=== PATIENT | male | born 1960 | race Caucasian/White ===

== ENCOUNTER → 2021-04-16 08:44 | Outpatient (BNVA) | payer OTHER, SELFPAY | PROVIDERS: Family Provider Electrodiagnostic Medicine; PCP Electrodiagnostic Medicine; Visit Provider Nurse Practitioner Family | DX: Z20.822 Contact with and (suspected) exposure to COVID-19 (principal) | CPT/HCPCS: 87635 ==

== ENCOUNTER 2022-10-15 15:47 | Emergency (ER) | payer MEDICAID, SELFPAY ==
[2022-10-15 15:50] VITALS: BP 154/79; PULSE 84; RESP 18; TEMP 36.7; O2SAT 94
--- NOTE | 2022-10-15 16:16 | CTR_ITS ---
PROCEDURE INFORMATION: Exam: CT Orbits With Contrast Exam date and time: 10/15/2022 6:30 PM Age: 62 years old Clinical indication: Other: Redness, irritation of left eye; Additional info: Left eye redness and pain, periorbital swelling TECHNIQUE: Imaging protocol: Computed tomography of the orbits with contrast. Radiation optimization: All CT scans at this facility use at least one of these dose optimization techniques: automated exposure control; mA and/or kV adjustment per patient size (includes targeted exams where dose is matched to clinical indication); or iterative reconstruction. Contrast material: OMNIPAQUE 350; Contrast volume: 95 ml; Contrast route: INTRAVENOUS (IV); Other protocol: This patient has received 0 known CTs and 0 known cardiac nuclear medicine studies in the 12 months prior to the current study. COMPARISON: No relevant prior studies available. RADIATION DOSE METRICS: Total DLP (mGy-cm): 719.18 FINDINGS: Paranasal sinuses: Normal. No air-fluid levels. Orbital cavities: Orbits are normal. Globes are unremarkable. Bones/joints: No acute fracture. Soft tissues: No significant facial soft tissue swelling. CT/CT orbit w con [id number] IMPRESSION: Negative for orbital cellulitis.
--- NOTE | 2022-10-15 16:18 | W.ED.EYEPROB ---
Documented by User: JOSE ANTONIO Rene 10/16/22 07:16 HPI - Eye Problem General: Chief complaint: Eye Problems Stated complaint: eye pain Time Seen by Provider: 10/15/22 15:59 History of Present Illness: Patient is a 62-year-old male comes to the ED with left eye complaint. Approximately 2 weeks ago patient started developing some bilateral eye redness. He endorses having increased watering eyes as well. Approximately 4 days ago he started developing some pain in his left eye. Any ocular movement of left eye because of some pain as well. He also endorses having some left periorbital swelling over the past couple days. Endorses some blurry vision due to the excessive watering of eyes. Denies any eye injury or foreign body. Denies any other complaints. Denies any fevers, nausea/vomiting. Associated symptoms: Denies fever(s), headache(s), nausea, neck pain or vomiting Review of Systems Const: Denies: fever(s), chills or fatigue Eyes: Reports: eye discomfort (Left thigh), eye redness (Bilateral) and other (Pain with ocular movements of left eye); Denies: change in vision ENMT: Denies: throat pain, odynophagia, nasal discharge or nasal congestion Card: Denies: chest pain, palpitations, edema, swelling of feet/ankles, dyspnea on exertion or orthopnea Resp: Denies: dyspnea, productive cough or non-productive cough GI: Denies: abdominal pain, nausea, vomiting, diarrhea, constipation or hematochezia : Denies: flank pain, difficulty urinating, dysuria or hematuria Musc: Denies: neck pain, back pain or extremity swelling Skin/Breast: Denies: rash or new lesions Neuro: Denies: headache(s), numbness in extremities or weakness in extremities PFS ED PFSH: Medical History (Updated 10/15/22 @ 19:54 by JOSE ANTONIO Grimes) No pertinent family history No pertinent past medical history Social History (Updated 04/16/21 @ 08:13 by Steffanie Mustafa NP) Smoking and tobacco status: never smoked Alcohol intake: never Physical Exam Const: COMMON NORMALS: patient oriented x3 and alert GENERAL APPEARANCE: cooperative HENMT: COMMON NORMALS: normocephalic HEAD & SCALP: normocephalic MOUTH: Normal oral and palatal mucosa present THROAT: posterior oropharynx normal and uvula midline Eye: COMMON NORMALS: Equal, round and reactive pupils present and EOMs intact bilaterally PERIORBITAL: periorbital findings abnormal positive left periorbital swelling CONJUNCTIVA: Yes conjunctival abnormal positive bilateral conjunctival injection diffuse (Left eye is worse than right) PUPIL: Yes Equal, round and reactive pupils present OTHER: Patient endorses pain in the left eye with ocular movements. Neck/C-Spine: COMMON NORMALS: supple GENERAL: Yes normal visual inspection Resp: COMMON NORMALS: normal respiratory effort, No retractions, No use of accessory muscles and clear to auscultation bilaterally AUSCULTATION: clear to auscultation bilaterally Cardio: COMMON NORMALS: regular rate, regular rhythm, S1 normal heart sound present, S2 normal heart sound present, No gallops present (Cardio), No clicks present (Cardio), No murmurs present (Cardio) and Peripheral pulses 2+ throughout RATE: regular rate RHYTHM: regular rhythm HEART SOUNDS: S1 normal heart sound present and S2 normal heart sound present PERIPHERAL PULSES: Peripheral pulses 2+ throughout GI: COMMON NORMALS: Normal to inspection, nondistended, normoactive bowel sounds present, Soft to palpation, non-tender and no masses PALPATION: Yes Soft to palpation : COMMON NORMALS: Yes no CVA tenderness BLADDER/KIDNEY EXAM: Yes no CVA tenderness Back/Pelvis: COMMON NORMALS: no CVA tenderness Extremity: COMMON NORMALS: normal to inspection Neuro: COMMON NORMALS: patient oriented x3 SENSORIUM/ORIENTATION: Yes alert GAIT: Yes Normal gait present Skin: GENERAL SKIN EXAM: dry skin Course Vital Signs: Vital signs: Vital Signs Temperature 98.1 F 10/15/22 15:50 Pulse Rate 74 10/15/22 18:09 Respiratory Rate 18 10/15/22 18:09 Blood Pressure 157/95 10/15/22 18:09 Pulse Oximetry 96 10/15/22 18:09 Oxygen Delivery Me thod 10/15/22 18:09 MDM - Eye Problem Lab Data I reviewed the patient's lab results. 10/15/22 16:22 10/15/22 16:[address] 10/15/22 16:16 IMPRESSION: Negative for orbital cellulitis. Laboratory Results WBC 10.4 10^3/uL (4.0-10.0) H 10/15/22 16:22 RBC 5.19 10^6/uL (4.1-5.3) 10/15/22 16:22 Hgb 15.9 g/dL (11.7-16.6) 10/15/22 16:22 Hct 47.5 % (42.0-52.0) 10/15/22 16:22 MCV 91.5 fl (80-94) 10/15/22 16:22 MCH 30.6 pg (28.0-34.0) 10/15/22 16:22 MCHC 33.5 g/dL (30.0-36.0) 10/15/22 16:22 RDW 12.3 % (12.1-15.1) 10/15/22 16:22 Plt Count 251 10^3/cmm (130-400) 10/15/22 16:22 MPV 9.8 fL (7.4-10.4) 10/15/22 16:22 Neut % (Auto) 59.3 % 10/15/22 16:22 Lymph % (Auto) 33.5 % 10/15/22 16:22 [place] % (Auto) 6.4 % 10/15/22 16:22 Eos % (Auto) 0.1 % 10/15/22 16:22 Baso % (Auto) 0.3 % 10/15/22 16:22 Neut # (Auto) 6.15 10^3/uL (1.8-7.7) 10/15/22 16:22 Lymph # (Auto) 3.5 10^3/uL (0.8-4.8) 10/15/22 16:22 [place] # (Auto) 0.7 10^3/uL (0.2-0.9) 10/15/22 16:22 Eos # (Auto) 0.0 10^3/uL (0.0-0.8) 10/15/22 16:22 Baso # (Auto) 0.0 10^3/uL (0.0-0.1) 10/15/22 16:22 Nucleated RBC % (auto) 0 % 10/15/22 16:22 Nucleated RBCs # 0.0 /100WBC 10/15/22 16:22 Sodium 141 mmol/L (136-145) 10/15/22 16:22 Potassium 3.9 mmol/L (3.5-5.1) 10/15/22 16:22 Chloride 102 mmol/L (98-107) 10/15/22 16:22 Carbon Dioxide 24 mmol/L (22-29) 10/15/22 16:22 Anion Gap 18.9 (5-19) 10/15/22 16:22 BUN 21 mg/dL (8-23) 10/15/22 16:22 Creatinine 0.8 mg/dL (0.7-1.2) 10/15/22 16:22 GFR Calculation 97.6 mL/min (90-130) 10/15/22 16:22 Glucose 101 mg/dL (65-115) 10/15/22 16:22 Calculated Osmolality 295 mOsm/kg (285-295) 10/15/22 16:22 Calcium 9.6 mg/dL (8.5-10.5) 10/15/22 16:22 Total Bilirubin 0.4 mg/dL (0.15-1.2) 10/15/22 16:22 AST 29 U/L (0-40) 10/15/22 16:22 ALT 41 U/L (0-41) 10/15/22 16:22 Alkaline Phosphatase 53 U/L (40-130) 10/15/22 16:22 Total Protein 8.0 g/dL (6.6-8.7) 10/15/22 16:22 Albumin 4.6 g/dL (3.5-5.2) 10/15/22 16:22 Globulin 3.4 g/dL (1.3-4.6) 10/15/22 16:22 Discharge Plan Discharge Patient Disposition: Home Clinical Impression: Redness of both eyes Condition: Stable Prescriptions: No Action losartan-hydrochlorothiazide 50-12.5 mg tablet 1 tab PO DAILY eye drops as directed citalopram 20 mg tablet 20 mg PO DAILY Discharge Orders: Discharge ED (Routine); Ordered 10/15/22 Ordered By: Tejal Mercer Referrals: Skyler Mustafa MD [Physician] - Fredy Holt DO [Primary Care Provider] - Activity Restrictions/Additional Instructions: As we discussed case management should contact you tomorrow to help set you up with a follow-up appointment with Dr. Mustafa's office. You need to return to the emergency department for worsening eye pain, any type of visual change or visual loss, severe sensitivity to light, foreign body sensation, or any other concerns you may have. Continue your current eyedrops as directed. Sign Out Sign Out Data: Patient Sign Out occurred on 10/15/22 at 17:10. Patient's care was discussed, and care was transferred from to JOSE ANTONIO Grimes. Coding Level of Care Code ED [employer] Police Officer for Chg Fwd Exam Comprehensive Documented by User: JOSE ANTONIO Grimes 10/15/22 20:28 HPI - Eye Problem General: Chief complaint: Eye Problems Stated complaint: eye pain Time Seen by Provider: 10/15/22 15:59 PFSH ED PFSH: Medical History (Updated 10/15/22 @ 19:54 by JOSE ANTONIO Grimes) No pertinent family history No pertinent past medical history Social History (Updated 04/16/21 @ 08:13 by Steffanie Mustafa NP) Smoking and tobacco status: never smoked Alcohol intake: never Course Vital Signs: Vital signs: Vital Signs Temperature 98.1 F 10/15/22 15:50 Pulse Rate 74 10/15/22 18:09 Respiratory Rate 18 10/15/22 18:09 Blood Pressure 157/95 10/15/22 18:09 Pulse Oximetry 96 10/15/22 18:09 Oxygen Delivery Me thod 10/15/22 18:09 MDM - Eye Problem Medical Decision Making Assumed care from Max Palomo PA-C pending CT orbit. CT scan was normal. On examination of patient I do not appreciate any periorbital swelling. He does have diffuse bilateral eye redness. Patient is able to keep both eyes open and does not seem to be in any discomfort. He has very mild reported photophobia and pain with EOMs and complains of a frontal headache. No visual changes or visual loss. No foreign body sensation. On examination of his eyes I do not appreciate any corneal clouding, ciliary flush, or hypopyon. DDx includes conjunctivitis, anterior uveitis, episcleritis scleritis. Will have patient follow up with Dr. Mustafa' office emergently/this week for further evaluation. Return to ED precautions given. Lab Data 10/15/22 16:22 10/15/22 16:[address] 10/15/22 16:16 IMPRESSION: Negative for orbital cellulitis. Laboratory Results WBC 10.4 10^3/uL (4.0-10.0) H 10/15/22 16:22 RBC 5.19 10^6/uL (4.1-5.3) 10/15/22 16:22 Hgb 15.9 g/dL (11.7-16.6) 10/15/22 16:22 Hct 47.5 % (42.0-52.0) 10/15/22 16:22 MCV 91.5 fl (80-94) 10/15/22 16:22 MCH 30.6 pg (28.0-34.0) 10/15/22 16:22 MCHC 33.5 g/dL (30.0-36.0) 10/15/22 16:22 RDW 12.3 % (12.1-15.1) 10/15/22 16:22 Plt Count 251 10^3/cmm (130-400) 10/15/22 16:22 MPV 9.8 fL (7.4-10.4) 10/15/22 16:22 Neut % (Auto) 59.3 % 10/15/22 16:22 Lymph % (Auto) 33.5 % 10/15/22 16:22 [place] % (Auto) 6.4 % 10/15/22 16:22 Eos % (Auto) 0.1 % 10/15/22 16:22 Baso % (Auto) 0.3 % 10/15/22 16:22 Neut # (Auto) 6.15 10^3/uL (1.8-7.7) 10/15/22 16:22 Lymph # (Auto) 3.5 10^3/uL (0.8-4.8) 10/15/22 16:22 [place] # (Auto) 0.7 10^3/uL (0.2-0.9) 10/15/22 16:22 Eos # (Auto) 0.0 10^3/uL (0.0-0.8) 10/15/22 16:22 Baso # (Auto) 0.0 10^3/uL (0.0-0.1) 10/15/22 16:22 Nucleated RBC % (auto) 0 % 10/15/22 16:22 Nucleated RBCs # 0.0 /100WBC 10/15/22 16:22 Sodium 141 mmol/L (136-145) 10/15/22 16:22 Potassium 3.9 mmol/L (3.5-5.1) 10/15/22 16:22 Chloride 102 mmol/L (98-107) 10/15/22 16:22 Carbon Dioxide 24 mmol/L (22-29) 10/15/22 16:22 Anion Gap 18.9 (5-19) 10/15/22 16:22 BUN 21 mg/dL (8-23) 10/15/22 16:22 Creatinine 0.8 mg/dL (0.7-1.2) 10/15/22 16:22 GFR Calculation 97.6 mL/min (90-130) 10/15/22 16:22 Glucose 101 mg/dL (65-115) 10/15/22 16:22 Calculated Osmolality 295 mOsm/kg (285-295) 10/15/22 16:22 Calcium 9.6 mg/dL (8.5-10.5) 10/15/22 16:22 Total Bilirubin 0.4 mg/dL (0.15-1.2) 10/15/22 16:22 AST 29 U/L (0-40) 10/15/22 16:22 ALT 41 U/L (0-41) 10/15/22 16:22 Alkaline Phosphatase 53 U/L (40-130) 10/15/22 16:22 Total Protein 8.0 g/dL (6.6-8.7) 10/15/22 16:22 Albumin 4.6 g/dL (3.5-5.2) 10/15/22 16:22 Globulin 3.4 g/dL (1.3-4.6) 10/15/22 16:22 Discharge Plan Discharge Patient Disposition: Home Clinical Impression: Redness of both eyes Condition: Stable Prescriptions: No Action losartan-hydrochlorothiazide 50-12.5 mg tablet 1 tab PO DAILY eye drops as directed citalopram 20 mg tablet 20 mg PO DAILY Discharge Orders: Discharge ED (Routine); Ordered 10/15/22 Ordered By: Tejal Mercer Referrals: Skyler Mustafa MD [Physician] - Fredy Holt DO [Primary Care Provider] - Activity Restrictions/Additional Instructions: As we discussed case management should contact you tomorrow to help set you up with a follow-up appointment with Dr. Mustafa's office. You need to return to the emergency department for worsening eye pain, any type of visual change or visual loss, severe sensitivity to light, foreign body sensation, or any other concerns you may have. Continue your current eyedrops as directed. Sign Out Sign Out Data: Patient Sign Out occurred on 10/15/22 at 17:10. Patient's care was discussed, and care was transferred from to JOSE ANTONIO Grimes. Coding Level of Care Code ED [employer] Officer for [employer]ave[employer] Fwd Exam Comprehensive
[2022-10-15 16:39] LABS: Basophils % 0.3 %; Eosinophils % 0.1 %; Hematocrit 47.5 % (42.0-52.0); Hemoglobin 15.9 g/dL (11.7-16.6); Lymphocytes # 3.5 10^3/uL (0.8-4.8); Lymphocytes % 33.5 %; Mean Corpuscular HGB Conc 33.5 g/dL (30.0-36.0); Mean Corpuscular Hemoglobin 30.6 pg (28.0-34.0); Mean Corpuscular Volume 91.5 fl (80-94); Mean Platelet Volume 9.8 fL (7.4-10.4); Monocytes # 0.7 10^3/uL (0.2-0.9); Monocytes % 6.4 %; Neutrophils # 6.15 10^3/uL (1.8-7.7); Neutrophils % 59.3 %; Nucleated Red Blood Cells % 0 %; Platelet Count 251 10^3/cmm (130-400); Red Blood Count 5.19 10^6/uL (4.1-5.3); Red Cell Distribution Width 12.3 % (12.1-15.1); White Blood Count 10.4 10^3/uL (4.0-10.0)
[2022-10-15 16:56] LABS: Alanine Aminotransferase 41 U/L (0-41); Albumin Level 4.6 g/dL (3.5-5.2); Alkaline Phosphatase 53 U/L (40-130); Anion Gap 18.9 (5-19); Aspartate Amino Transferase 29 U/L (0-40); Blood Urea Nitrogen 21 mg/dL (8-23); Calcium 9.6 mg/dL (8.5-10.5); Carbon Dioxide 24 mmol/L (22-29); Chloride 102 mmol/L (98-107); Globulin 3.4 g/dL (1.3-4.6); Glomerular Filtration Rate 97.6 mL/min (90-130); Glucose 101 mg/dL (65-115); Osmolality Calculated 295 mOsm/kg (285-295); Potassium 3.9 mmol/L (3.5-5.1); Sodium 141 mmol/L (136-145); Total Bilirubin 0.4 mg/dL (0.15-1.2)
[2022-10-15 18:09] VITALS: BP 157/95; PULSE 74; RESP 18; O2SAT 96
[2022-10-15] MEDS: iohexol 350 mg/mL 500 mL Btl (per mL) 95 ML IV (18:27)
--- NOTE | 2022-10-16 09:03 | DCPLANNER ---
Addendum entered by Valentina Will 10/16/22 13:27: manager orange called the office of Dr. Mustafa to confirm that patients information had been received. manager orange was told that clinic received patients information. Original Note: manager orange had message to schedule a follow up appointment for patient with ophthalmology. manager orange faxed patients information to the front office of Dr. Mustafa. Clinic will review patients paperwork and will call patient with appointment information.
== END 2022-10-15 20:01 | disposition home or self-care (01) ==
PROVIDERS: Physician Assistant; Emergency Provider Physician Assistant; PCP Electrodiagnostic Medicine
DX: H10.9 Unspecified conjunctivitis (principal)
CPT/HCPCS: 70481; 80053; 85025; 99285; Q9967

== ENCOUNTER 2023-04-22 13:59 | Outpatient (CLI) | payer MEDICAID, SELFPAY ==
--- NOTE | 2023-04-22 14:09 | CT_ITS ---
WS: [id number] CT chest wo con [id number] HISTORY: CHRONIC COUGH TECHNIQUE: Axial imaging performed through the thorax. Coronal and sagittal reformats are submitted. All CT scans at [facility] use at least one of these dose optimization techniques: automated exposure control; mA and/or kV adjustment per patient size (includes targeted exams where dose is mat ched to clinical indication); or iterative reconstruction. CONTRAST: None DLP: 439.98 mGy.cm COMPARISON: None available. Lungs and central airway: Irregular nodule right upper lobe measures 12 x 13 mm. There are adjacent s mall satellite nodules in the right upper lobe. There is an additional nodule slightly superior to th e larger nodule measuring 4 mm. Mild hazy attenuation groundglass attenuation left lung base with adj acent nodules. Largest nodule at the left lung base is 4 mm. Pleura: Normal. No pleural effusion. Heart and pericardium: Normal size heart with no pericardial effusion. Mediastinum and isabelle: No mediastinum or hilar adenopathy. Vessels: Normal size aorta. Mild coronary artery calcifications. Normal sized pulmonary artery. Chest wall and lower neck: No soft tissue masses. Upper abdomen: Normal. Osseous structures: No destructive process. IMPRESSION: 1. Right upper lobe irregular nodule measuring 12 x 13 mm with adjacent satellite nodules. Additional 4 mm nodule right upper lobe. Indeterminate but suspicious for neoplasm. 2. Additional small, subcentimeter nodules at the left lung base with groundglass attenuation. 3. Recommendation: Follow-up chest CT in 3 months versus PET/CT imaging at this time. 4. No mediastinal or hilar adenopathy.
[2023-04-22 14:14] VITALS: PULSE 71; RESP 18; O2SAT 98
[2023-04-22] MEDS: albuterol 2.5 mg/3 mL Neb INHALATION (14:14)
[2023-04-22 14:19] VITALS: PULSE 72
== END 2023-04-22 14:00 | disposition home or self-care (01) ==
PROVIDERS: PCP Electrodiagnostic Medicine; Visit Provider Electrodiagnostic Medicine
DX: R05.3 Chronic cough (principal); R91.8 Other nonspecific abnormal finding of lung field; R94.2 Abnormal results of pulmonary function studies
CPT/HCPCS: 71250; 94060; 94729; J7613

== ENCOUNTER → 2023-05-19 14:41 | Outpatient (BNVA) | payer MEDICAID, SELFPAY | PROVIDERS: PCP Electrodiagnostic Medicine; Visit Provider Internal Medicine Pulmonary Disease | DX: R91.8 Other nonspecific abnormal finding of lung field (principal); J30.2 Other seasonal allergic rhinitis; R06.02 Shortness of breath | CPT/HCPCS: 82785; 86003 ==

== ENCOUNTER 2023-05-25 10:41 | Outpatient (CLI) | payer MEDICAID, SELFPAY ==
--- NOTE | 2023-05-25 11:00 | FL_ITS ---
WS: [id number] Exam: FL sniff test [id number] Date/Time of Exam: 05/25/2023 11:00 AM Reason For Exam: SHORTNESS OF BREATH Sniff test performed under fluoroscopic visualization. The diaphragms move in a normal fashion during inspiration and expiration and also during sniff test. There were no findings that would suggest diaphragmatic paralysis. It is noted on numerous prior efren ging exams that the RIGHT diaphragm is somewhat elevated as compared to the LEFT secondary to interpo sition of the liver. This can be seen on the CT scan of the abdomen as far back as 07/27/2013. IMPRESSION: 1. Unremarkable sniff test. There appears to be physiologic motion of both diaphragms identified duri ng fluoroscopy.
== END 2023-05-25 10:42 | disposition home or self-care (01) ==
PROVIDERS: PCP Electrodiagnostic Medicine; Visit Provider Internal Medicine Pulmonary Disease
DX: R06.02 Shortness of breath (principal)
CPT/HCPCS: 76000

== ENCOUNTER 2023-08-25 14:13 | Outpatient (CLI) | payer MEDICAID, SELFPAY ==
--- NOTE | 2023-08-25 09:00 | PETR_ITS ---
PROCEDURE INFORMATION: Exam: PET/CT Skull Base to Mid-thigh Exam date and time: 08/25/2023 9:26 AM Age: 63 years old Clinical indication: Abnormal findings; Lung nodules LABS AND CLINICAL REPORTS: Glucose: 95 mg/dl Treatment strategy for malignancy (PET staging): Initial Staging (PI) TECHNIQUE: Imaging protocol: Following at least four-hour fasting and following the injection of radiopharmaceutical, low dose CT images were obtained. Then, PET images were obtained. Attenuation corrected images were constructed using the CT scan. Fused images of PET and CT were reviewed. The standardized uptake values (SUV) reported below are maximum values within a region of interest, expressed in gm/ml. Exam includes orbital meatal line to mid-thigh. Radiopharmaceutical: 11.44 mCi F-18 FDG (Fluorodeoxyglucose), IV. Time of imaging post radiopharmaceutical administration: 1 hour Injection site: Left antecubital COMPARISON: CT chest con [id number] 04/22/2023 2:53 PM, CT abdomen and pelvis 10/16/2016 FINDINGS: Limitations: The examination is slightly technically suboptimal secondary to the scan to injection time outside of recommended parameters (45-75 minutes). Reported scan to injection time of 42 minutes. Injection to scan times outside of recommended parameters can result in decreased PET sensitivity and limit the utility of comparison of SUV values to prior or subsequent exams. Brain: Visualized brain has normal physiologic uptake. Pharynx: There is mild, likely physiologic or inflammatory uptake in the bilateral palatine tonsils, SUV max 3.7 on the right and 4.2 on the left without evidence of discrete lesions in these locations on the CT images. Larynx: No abnormal uptake. Lungs, pleura and trachea: A solid spiculated nodule in the anterior inferior aspect of the right upper lobe measures 1.6 x 1.0 cm on series 3, image 72, SUV max 1.0 and appears similar to possibly slightly increased in size since the prior exam allowing for differences in slice thickness. Additional smaller solid-appearing nodules in the anterior right upper lobe measuring 2-3 mm on series 3, image 66 and series 3, image 70 are similar. A 3-4 mm solid posterior left lower lobe nodule on series 3, image 95 is been stable since at least 10/16/2016 without elevated uptake. No definite additional pulmonary nodules with limitations of mild respiratory motion artifact. Heart: Normal physiologic uptake. Mediastinal space: No abnormal uptake. Liver: No abnormal uptake. Gallbladder and bile ducts: No abnormal uptake. Pancreas: No abnormal uptake. Spleen: No abnormal uptake. Adrenal glands: No abnormal uptake. Kidneys and ureters: Rounded non radiotracer avid lesions in the bilateral kidneys are noted, some which are hypodense to renal parenchyma while others are slightly hyperdense for example arising exophytically from the inferior pole of the left kidney measuring 1.4 cm in diameter. Stomach and bowel: No abnormal uptake. Vasculature: No abnormal uptake. There are diffuse atherosclerotic changes. Lymph nodes: No abnormal uptake. No lymphadenopathy in the head, neck, chest, abdomen, pelvis, and extremities. Bones/joints: No abnormal uptake in the visualized axial and appendicular skeleton. There is mild diffuse vertebral body spondylosis. Soft tissues: Physiologic appearing uptake within the lower lip is present. METRICS: Mediastinal blood pool: SUV max 2.2 [facility] [id number] IMPRESSION: 1. No evidence of radiotracer avid malignancy. 2. A dominant solid spiculated right upper lobe nodule is similar to slightly increased in size with a similar appearance of two adjacent smaller 2-3 mm solid nodules. All these nodules are non radiotracer avid which favors a benign etiology. The left lower lobe nodule has been present since 04/22/2023 which also favors a benign etiology. The morphology of the dominant right upper lobe nodule remains suspicious and the possibility of non hypermetabolic malignancy cannot be entirely excluded from this exam. Consider percutaneous biopsy or 3 month follow-up CT for further surveillance. 3. Non radiotracer avid rounded lesions in both kidneys are present. Assessment of renal lesions can be limited by PET-CT. These structures were compatible with benign cysts, some of which are likely hemorrhagic on the comparison CT of 10/16/2016. No follow-up is necessary. 4. Additional nonurgent findings as detailed above.
== END 2023-08-25 14:14 | disposition home or self-care (01) ==
LOC: RAD 14:13
PROVIDERS: PCP Electrodiagnostic Medicine; Visit Provider Internal Medicine Pulmonary Disease
DX: R91.8 Other nonspecific abnormal finding of lung field (principal)
CPT/HCPCS: 78815; A9552

== ENCOUNTER 2023-12-08 08:28 | Outpatient (CLI) | payer MEDICAID, SELFPAY ==
--- NOTE | 2023-12-08 09:00 | CTR_ITS ---
PROCEDURE INFORMATION: Exam: CT Chest Without Contrast; Diagnostic Exam date and time: 12/08/2023 8:42 AM Age: 63 years old Clinical indication: Condition or disease; Lung condition and disease; Pulmonary nodule, solitary; Additional info: Follow up TECHNIQUE: Imaging protocol: Diagnostic computed tomography of the chest without contrast. Radiation optimization: All CT scans at this facility use at least one of these dose optimization techniques: automated exposure control; mA and/or kV adjustment per patient size (includes targeted exams where dose is matched to clinical indication); or iterative reconstruction. COMPARISON: 1. PT PET [facility] INITIAL [id number] 08/25/2023 9:[address] chest wo con [id number] 04/22/2023 2:53 PM RADIATION DOSE METRICS: Total DLP (mGy-cm): 512.24 FINDINGS: Limitations: Images degraded by artifact, motion, breathing. Lungs: Stable small nodules left lung base, left lower lobe. 1-1.5 cm irregular nodule right upper lobe, series 5, image 22, appears stable compared to 08/17/2023, 04/22/2023. Small adjacent nodules, satellite nodules also appear stable. No new focal infiltrate seen of the lungs. Pleural spaces: No pneumothorax and no pleural effusion seen. Heart: No pericardial effusion seen. Coronary arteries: Coronary artery calcifications. Esophagus: Suggestion of mild wall thickening esophagus. Lymph nodes: No new suspicious lymphadenopathy seen. Vasculature: Atherosclerotic disease. No aneurysm seen of thoracic aorta. Adrenal glands: Noncontrasted adrenals unremarkable. Bones/joints: Degenerative changes spine. Prior rib fractures. Soft tissues: Unremarkable. CT/CT chest wo con [id number] IMPRESSION: 1-1.5 cm irregular nodule right upper lobe, series 5, image 22, appears stable compared to 08/17/2023, 04/22/2023. Follow-up CT scan chest recommended in 3-6 months, or sooner if indicated.
== END 2023-12-08 08:29 | disposition home or self-care (01) ==
LOC: RAD 08:30
PROVIDERS: PCP Electrodiagnostic Medicine; Visit Provider Internal Medicine Pulmonary Disease
DX: R91.1 Solitary pulmonary nodule (principal); J98.6 Disorders of diaphragm
CPT/HCPCS: 71250

== ENCOUNTER 2024-06-11 08:32 | Emergency (ER) | payer MEDICARE, MEDICAID, SELFPAY ==
[2024-06-11 08:40] VITALS: BP 183/104; PULSE 60; RESP 20; TEMP 36.6; O2SAT 95; BMI 33.7
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
[2024-06-11] MEDS: tetanus-dipt-pertussis 0.5 mL SDV IM (08:49)
[2024-06-11 09:50] VITALS: BP 173/87; PULSE 68; O2SAT 95
== END 2024-06-11 09:51 | disposition home or self-care (01) ==
PROVIDERS: Emergency Provider Family Medicine; PCP Electrodiagnostic Medicine
DX: S09.90XA Unspecified injury of head, initial encounter (principal); S00.81XA Abrasion of other part of head, initial encounter; V29.99XA Rider (driver) (passenger) of other motorcycle injured in unspecified traffic accident, initial encounter
CPT/HCPCS: 70450; 72125; 90471; 90715; 99284

== ENCOUNTER 2024-06-29 08:17 | Outpatient (CLI) | payer MEDICARE, MEDICAID, SELFPAY ==
--- NOTE | 2024-06-29 08:33 | CT_ITS ---
WS: [id number] CT chest w con* [id number] HISTORY: MUTLIPLE LUNG NODULES F/U TECHNIQUE: Axial imaging performed through the thorax. Coronal and sagittal reformats are submitted. All CT scans at [facility] use at least one of these dose optimization techniques: automated exposure control; mA and/or kV adjustment per patient size (includes targeted exams where dose is mat ched to clinical indication); or iterative reconstruction. CONTRAST: Omnipaque 350; 100 mL IV. DLP: 449.12 mGy.cm COMPARISON: 12/08/2023, 04/22/2023, PET/CT 08/25/2023 Lungs and central airway: Poor inspiratory effort. Motion artifact during the examination. Reidentifi ed is a 10 x 7 mm nodule RIGHT upper lobe with small adjacent satellite lesions. This mass was negati ve on the recent PET/CT and has not increased in size since 04/22/2023. No change in the LEFT lower lob e very small pulmonary nodules. No new mass or nodule. Pleura: Normal. No pleural effusion. Heart and pericardium: Normal size heart with no pericardial effusion. Mediastinum and isabelle: Small RIGHT suprahilar lymph node. No adenopathy. Vessels: Normal size aortic and pulmonary artery. No coronary artery calcifications. Chest wall and lower neck: No soft tissue masses. Upper abdomen: Hepatic steatosis within the visualized liver. No adrenal mass. Well-circumscribed sta ble cyst upper pole LEFT kidney measures 10 mm. Osseous structures: No destructive process. CT/CT chest w con* [id number] IMPRESSION: 1. No increase in size RIGHT upper lobe 10 x 7 mm pulmonary nodule since 023. This nodule was also negative on a prior PET/CT. 2. Subcentimeter nodules LEFT lower lobe are stable.
[2024-06-29 08:59] LABS: Blood Urea Nitrogen 16 mg/dL (8-23); Glomerular Filtration Rate 84.7 mL/min (90-130)
[2024-06-29] MEDS: iohexol 350 mg/mL 500 mL Btl (per mL) IV (09:34)
== END 2024-06-29 08:18 | disposition home or self-care (01) ==
LOC: RAD 08:17
PROVIDERS: Radiology Neuroradiology; PCP Electrodiagnostic Medicine; Visit Provider Electrodiagnostic Medicine
DX: R91.8 Other nonspecific abnormal finding of lung field (principal); K76.0 Fatty (change of) liver, not elsewhere classified; N28.1 Cyst of kidney, acquired
CPT/HCPCS: 71260; 82565; 84520

== ENCOUNTER 2024-08-09 08:24 | Outpatient (CLI) | payer MEDICARE, MEDICAID, SELFPAY | END 2024-08-09 08:25 | disposition home or self-care (01) | LOC: RT 08:25 | PROVIDERS: PCP Electrodiagnostic Medicine; Visit Provider Electrodiagnostic Medicine | DX: J44.89 Other specified chronic obstructive pulmonary disease (principal); R94.2 Abnormal results of pulmonary function studies | CPT/HCPCS: 94010; 94729 ==

== ENCOUNTER → 2024-09-27 08:37 | Outpatient (BNVA) | payer MEDICARE, MEDICAID, SELFPAY | PROVIDERS: PCP Electrodiagnostic Medicine; Visit Provider Student in an Organized Health Care Education/Training Program | DX: M25.561 Pain in right knee (principal); M25.562 Pain in left knee; Z01.818 Encounter for other preprocedural examination; M17.12 Unilateral primary osteoarthritis, left knee; R03.0 Elevated blood-pressure reading, without diagnosis of hypertension | CPT/HCPCS: 73560; 73565; 99204 ==

== ENCOUNTER 2024-10-10 07:19 | Outpatient (CLI) | payer MEDICARE, MEDICAID, SELFPAY ==
[2024-10-10 07:58] LABS: Basophils # 0.1 10^3/uL (0.0-0.1); Basophils % 0.6 %; Eosinophils % 0.1 %; Hematocrit 43.4 % (37-53); Lymphocytes # 3.2 10^3/uL (0.8-4.8); Lymphocytes % 40.5 %; Mean Corpuscular HGB Conc 33.9 g/dL (30-55); Mean Corpuscular Hemoglobin 30.4 pg (27-33); Mean Corpuscular Volume 89.7 fl (82-101); Monocytes # 0.5 10^3/uL (0.2-0.9); Monocytes % 6.5 %; Neutrophils # 4.06 10^3/uL (1.8-7.7); Nucleated Red Blood Cells % 0 %; Platelet Count 218 10^3/cmm (157-399); Red Blood Count 4.84 10^6/uL (3.85-5.65); Red Cell Distribution Width 11.6 % (12.1-15.1); White Blood Count 7.82 10^3/uL (3.29-11.43)
[2024-10-10 08:17] LABS: Bilirubin Urine Negative (Negative); Blood Urine Negative (Negative); Glucose Urine UA Negative (Normal); Ketones Urine Negative (Negative); Leukocyte Esterase Urine 1+ (Negative); Nitrate Urine Negative (Negative); Protein Urine 1+ (Negative); Specific Gravity, Urine 1.023 (1.005-1.030); Urine Appearance Clear (CLEAR); Urine Color Yellow (Yellow)
[2024-10-10 08:19] LABS: Alanine Aminotransferase 26 U/L (0-41); Albumin Level 4.1 g/dL (3.5-5.2); Alkaline Phosphatase 70 U/L (40-130); Anion Gap 15.9 (5-19); Aspartate Amino Transferase 20 U/L (0-40); Blood Urea Nitrogen 18 mg/dL (8-23); Calcium 9.3 mg/dL (8.5-10.5); Carbon Dioxide 26 mmol/L (22-29); Chloride 104 mmol/L (98-107); Globulin 3.1 g/dL (1.3-4.6); Glomerular Filtration Rate 113.2 mL/min (90-130); Glucose 106 mg/dL (65-115); Osmolality Calculated 296 mOsm/kg (285-295); Potassium 3.9 mmol/L (3.5-5.1); Sodium 142 mmol/L (136-145); Total Bilirubin 0.2 mg/dL (0.15-1.2); Total Protein 7.2 g/dL (6.6-8.7)
[2024-10-10 08:19] LABS: Add Urine Microscopic? YES; Bacteria Urine 1+ /hpf; Hyaline Casts Urine 1.65 /lpf; RBC Urine 0-2 /hpf (0-2); Squamous Epithelial Cell Urine 0-5 /hpf (0-5); WBC Urine 51-100 /hpf (0-5)
[2024-10-10 08:50] LABS: Add Urine Culture? Yes
== END 2024-10-10 07:20 | disposition home or self-care (01) ==
LOC: LAB 07:24
PROVIDERS: PCP Electrodiagnostic Medicine; Visit Provider Student in an Organized Health Care Education/Training Program
DX: Z01.818 Encounter for other preprocedural examination (principal)
CPT/HCPCS: 36415; 80053; 81001; 85025; 87086

== ENCOUNTER 2024-10-10 16:02 | Outpatient (CLI) | payer MEDICARE, MEDICAID, SELFPAY ==
--- NOTE | 2024-10-10 16:15 | CT_ITS ---
WS: [id number] CT LEFT KNEE, NONCONTRAST TECHNIQUE: Noncontrast CT of the LEFT knee to include the LEFT hip and ankle. CLINICAL INFORMATION: LEFT KNEE DJD DLP: 957.[address] scans at [facility] use at least one of these dose optimization techniques: automated e xposure control; mA and/or kV adjustment per patient size (includes targeted exams where dose is matc hed to clinical indication); or iterative reconstruction. FINDINGS: Moderate to advanced tricompartment arthritis LEFT knee. Hypertrophic patella. Small suprapatellar ef fusion. Lobulated popliteal cyst. Soft tissue edema about the knee. Sigmoid diverticulosis. Tiny fat-containing LEFT inguinal hernia. Mild prostate enlargement. Prostate measures 3.[address]/CT knee [facility] [id number] IMPRESSION: Images obtained for preoperative purposes.
== END 2024-10-10 16:03 | disposition home or self-care (01) ==
LOC: RAD 16:03
PROVIDERS: PCP Electrodiagnostic Medicine; Visit Provider Student in an Organized Health Care Education/Training Program
DX: M17.12 Unilateral primary osteoarthritis, left knee (principal); R93.6 Abnormal findings on diagnostic imaging of limbs; M71.22 Synovial cyst of popliteal space [Baker], left knee; K57.30 Diverticulosis of large intestine without perforation or abscess without bleeding; N40.0 Benign prostatic hyperplasia without lower urinary tract symptoms; R93.89 Abnormal findings on diagnostic imaging of other specified body structures
CPT/HCPCS: 73700

== ENCOUNTER → 2024-10-18 08:32 | Outpatient (BNVA) | payer MEDICARE, MEDICAID, SELFPAY | PROVIDERS: PCP Electrodiagnostic Medicine; Visit Provider Family Medicine | DX: Z01.818 Encounter for other preprocedural examination (principal) | CPT/HCPCS: 81003; 93005 ==

== ENCOUNTER 2024-10-24 10:02 | Observation (INO) | payer MEDICARE, MEDICAID, SELFPAY ==
[2024-10-24] VITALS (17 sets, daily range): BP systolic 112–150; BP diastolic 61–90; PULSE 72–97; RESP 16–20; TEMP 36.2–36.8; O2SAT 92–98; BMI 32.9
[2024-10-24] MEDS: acetaminophen 1,000 MG/100 ML PIGGYBACK 400 MG IV ×3 (06:27→17:42)
[2024-10-24] MEDS: lactated ringers 500 ML IV (06:30)
[2024-10-24] MEDS: ketorolac 30 mg/mL INJ IVP (06:31)
--- NOTE | 2024-10-24 06:34 | ANES.PREANE2 ---
Pre-Anesthetic Assessment Height/Weight: Height 5 ft 4 in Weight 192 lb Temp Pulse Resp BP Pulse Ox O2 Del Method 97.6 F 86 18 150/90 97 Room Air 10/24/24 06:08 10/24/24 06:08 10/24/24 06:08 10/24/24 06:08 10/24/24 06:08 10/24/24 06:18 Preop Diagnosis: Knee arthritis Operation Date: 10/24/24 07:00 Proposed Procedures p Roberto Robot Total Knee Arthroplasty(Left) - Efraín Palomo, DO Was Beta Colette taken within 24 hours: N/A Was Clonidine taken within 24 hours: N/A Last intake: Intake Last Liquid Date 10/23/24 Last Liquid Time 22:00 Last Solid Date 10/23/24 Last Solid Time 22:00 Social No alcohol and No tobacco Exam alert, oriented x 3, clear to auscultation bilaterally and regular rate & rhythm Airway Submandibular: within normal limits Cervical ROM: within normal limits Mallampati: Class II Comments: Comments: Edentulous Anesthetic Plan ASA status: 2 Anesthesia: MAC and Regional (specify below) Other: No prior issues with anesthesia NPO since yesterday History of hypertension on amlodipine Patient has a right upper lobe pulmonary nodule that has been followed for quite some time Positive UA in September, repeat UA negative Other labs reviewed and unremarkable EKG showing sinus rhythm METs greater than 4 Plan for spinal anesthetic with post induction nerve block Medications/Allergies Home Medications ?Medication ?Instructions ?Recorded ?Confirmed ?Last Taken ?Type amlodipine 10 mg tablet 10 mg PO DAILY 10/18/24 10/20/24 10/23/24 History ciprofloxacin HCl 500 mg tablet 500 mg PO Q12H #10 tabs 10/18/24 10/20/24 10/22/24 Rx finasteride 5 mg tablet 5 mg PO DAILY 10/18/24 10/20/24 10/23/24 History tamsulosin 0.4 mg capsule 0.4 mg PO DAILY 10/18/24 10/20/24 10/23/24 History Allergies Allergy/AdvReac Type Severity Reaction Status Date / Time morphine Allergy Intermediate vomit Verified 10/20/24 11:18 Current Medications Generic Name Dose Route Start Last Admin Trade Name Freq PRN Reason Stop Dose Admin Lactated Ringer's 500 mls @ 500 mls/hr 10/24/24 05:56 10/24/24 06:30 Lactated Ringers IV 10/24/24 06:55 500 mls/hr .Q1H ONE Administration PFSH Anesthesia Medical History No pertinent past medical history No pertinent family history Social History Smoking and tobacco/nicotine status: never used tobacco/nicotine Alcohol intake: never Substance/Drug Use: never Marital status: Data Anesthesia 10/24/24 06:25 10/24/24 06:25 Cardiac Studies: No Data to Display
[2024-10-24] MEDS: sodium chloride 0.9% 1,000 ML 30 ML IV (06:55)
[2024-10-24 06:57] LABS: Basophils % 0.5 %; Eosinophils # 0.2 10^3/uL (0.0-0.8); Eosinophils % 2.7 %; Hematocrit 44.1 % (37-53); Lymphocytes # 3.2 10^3/uL (0.8-4.8); Lymphocytes % 38.2 %; Mean Corpuscular HGB Conc 34.2 g/dL (30-55); Mean Corpuscular Hemoglobin 30.1 pg (27-33); Mean Corpuscular Volume 87.8 fl (82-101); Mean Platelet Volume 9.9 fL (7.4-10.4); Monocytes # 0.6 10^3/uL (0.2-0.9); Monocytes % 7.4 %; Nucleated Red Blood Cells % 0 %; Platelet Count 202 10^3/cmm (157-399); Red Blood Count 5.02 10^6/uL (3.85-5.65); Red Cell Distribution Width 11.7 % (12.1-15.1); White Blood Count 8.24 10^3/uL (3.29-11.43)
[2024-10-24 06:59] LABS: Blood Urea Nitrogen 16 mg/dL (8-23); Calcium 9.5 mg/dL (8.5-10.5); Carbon Dioxide 22 mmol/L (22-29); Chloride 102 mmol/L (98-107); Creatinine Clr Calc Pharmacy 91.6094; Glomerular Filtration Rate 113.2 mL/min (90-130); Glucose 105 mg/dL (65-115); Osmolality Calculated 292 mOsm/kg (285-295); Sodium 140 mmol/L (136-145)
--- NOTE | 2024-10-24 07:01 | W.PM.OPSUD ---
Surgery/Procedure H&P Update DATE OF PROCEDURE: October 24, 2024 DATE H&P PERFORMED: 09/27/24 H&P UPDATE INFORMATION: I have reviewed H&P completed within last 30 days, I have examined patient prior to procedure and No changes to prior documentation PREOP DIAGNOSIS: Left Knee DJD PRIMARY INDICATION FOR PROCEDURE: Left knee DJD PLANNED PROCEDURE: Operation Date: 10/24/24 07:00 Proposed Procedures p Roberto Robot Total Knee Arthroplasty(Left) - Efraín Palomo DO
[2024-10-24] MEDS: ceFAZolin 2,000 MG in sodium chloride 0.9% (plus) 50 ML 100 MG IV ×3 (07:04→23:57)
--- NOTE | 2024-10-24 07:37 | ANES.PROC ---
Anesthesia Procedures Procedure/Date: 10/24/24 Nerve Block ^: Nerve Block 1: Main Anesthesia: spinal anesthesia block Time Out Performed: Yes Consent: requested by attending/covering physician and from patient Nerve block location: adductor canal Anesthesia monitors applied: pulse oximetry, EKG, BP cuff and oxygen Nerve block position: supine Anesthetic Used: ropivicaine 0.5% Amount of anesthesia used (mL): 15 Ultrasound used to: recognize landmarks Nerve Stimulator Used?: No Interscalene/Femoral BLK: other needle (pjunk 4inch) Injection: neg aspiration of heme Patient Tolerated Procedure: well Complications: none
[2024-10-24] MEDS: tranexamic acid 1,000 mg/10mL SDV 1000 MG IV (07:50)
[2024-10-24 08:07] LABS: Anion Gap 19.8 (5-19); Potassium 3.8 mmol/L (3.5-5.1)
[2024-10-24] MEDS: ROPivacaine 0.2% Premix 100 mL 200 MG INTRA-ARTI (08:09)
[2024-10-24] MEDS: ketorolac 30 mg/mL INJ XX (08:09)
[2024-10-24] MEDS: EPINEPHrine 1 mg/mL INJ XX (08:09)
[2024-10-24] MEDS: tranexamic acid 1,000 mg/10mL SDV 1000 MG XX (08:09)
--- NOTE | 2024-10-24 09:08 | P.BOP_ITS ---
Date of Procedure: 10/24/2024 Surgeon: Efraín Palomo DO [employer] Agent(s): Max Palomo PA-C Procedure(s) performed: Left total knee arthroplasty?Roberto robotic assisted Findings of the procedure(s): Patient found to have left knee severe degenerative joint disease underwent procedure as planned without issues or complications. Taken back to PACU stable condition Estimated blood loss: 25 mL Specimen(s) removed: Tibia femur patellar bone cuts Post-operative diagnosis: Left knee degenerative joint disease
--- NOTE | 2024-10-24 09:11 | P.OP_ITS ---
Operative Report Date of procedure: October 24, 2024 Surgeon: Efraín Palomo DO Senior Director Creative Services: Max Palomo PA-C: PA was necessary for assistance in this case with leg positioning retraction and protection of neurovascular structures as well as assistance in implantation wound closure and dressing application. Procedure: Preoperative diagnosis: Left knee degenerative joint disease Post-op diagnosis: Same Procedure done: Left total knee arthroplasty, cemented?robotic assisted Roberto Implants: [place] triathlon size 3 femur CR cemented?left [place] triathlon size? 4 tibia universal baseplate cemented [place] triathlon symmetric patella size 29 mm Shayne triathlon polyethylene 10mm Surgeon: Efraín Palomo DO Estimated blood?loss: 25 mL Tourniquet 63minutes IV fluids: 1200 mL Urine output: 800 mL Complications: None Condition: stable Disposition: floor Brief History: Patient is a 64-year-old male with with chronic?left knee degenerative joint d isease.? Patient has been worked up in the outpatient setting in the orthopedic office at this point time through shared decision making given? [id number] arthritis as well as failed conservative treatment, and pt would?like to proceed with a?left total knee arthroplasty.? Through shared decision making elected to proceed with surgical intervention for?left total knee arthroplasty ROBERTO robotic assisted.? We talked about continued conservative treatment and surgical intervention as far as the risk benefits complications alternatives surgical and nonsurgical treatment options.? At this point time understanding patient risks with surgery he agrees to proceed with surgical intervention.? Once again? risk with surgery include but are not?limited to make it better make it worse blood clot, heart attack, stroke, on the table, infection, injury to nerves or vessels, persistent pain, arthrofibrosis, implant failure.? Understanding these risks patient agrees to proceed with surgical intervention consent was obtained.? All questions answered. Procedure: Patient was seen and evaluated in the preoperative holding area.? Consent was reviewed and signed with patient with plan for?left total knee arthroplasty.? All questions answered.? Correct extremity marked.? Patient seen and evaluated by the anesthesia department and once cleared for surgery was taken back to the operative suite.? Patient was placed into a supine position on the OR table.? All bony prominences were well-padded.? Patient was appropriately secured to the bed.? Patient underwent anesthesia per the anesthesia department.? Patient received spinal anesthesia and? Dangelo catheter was placed.? A nonsterile tourniquet was applied to the?left thigh.? At this point in time a final timeout performed.? Patient received appropriate preoperative antibiotics and TXA. Next the?left?lower extremity was then prepped and draped in standard orthopedic fashion. Esmarch tourniquet was used exsanguinate the?left?lower extremity.? Tourniquet was insufflated to 250 mmHg. A standard anterior incision was made over midline of the knee.? Sharp scalpel excision through skin and subcutaneous tissue full-thickness skin flaps were made.? Fascia was elevated off of the extensor retinaculum was stable with medial parapatellar arthrotomy was then made.? The performed standard sequential releases..? Immediately on entry into the joint patient was found to have severe eburnated bone and tricompartmental arthritic changes noted.? With significant osteophyte formation.? Next the the patella was then stuffed and the knee was then flexed.?? Rubia was placed superiorly around the anterior aspect of the femur this was freed of synovium and I subsequently then placed by 2 femur pins to establish my femur arrays for the Roberto robot.? These were then placed bicortically and? femur array was then appropriately secured with appropriate visualization.? Next attention was turned towards the tibial rays.? These were then drilled sequentially bicortically in parallel fashion and intraincisional.? I then placed my guide as well as my tibial array on in place.? This was appropriately secured and had excellent visualization with the Roberto robot.? Next the tibial checkpoint as well as femur checkpoint were then placed.? At this point time I then subsequently established my head center as well as my medial?lateral malleoli as well as my checkpoints.? Next utilizing standard Roberto technology I then mapped out the appropriate points and confirmation points around the femur as well as the tibia in standard fashion.? Once this was then done I then removed all osteophytes in preparation for dynamic testing.? All osteophytes were removed as well as I removed the ACL and the PCL was excised due to its significant tearing and degeneration noted.? At this point time the knee was brought into full extension and we performed our standard evaluation of our gap balancing stressing his?ligaments and extension as well as flexion appropriate adjustments were made to have appropriate gap balancing in both flexion and extension.? This plan for final cuts. Patient had valgus deformity and was corrected via robot accommodating for patient's ligament balancing.? We get a preoperative plan evaluating our implants which was a size 3 femur and a size 4 tibia.? Next we brought in the [employer] robot and sequentially made our femur cuts.? All excess bony cuts were then removed.? Finally we made our tibial cut.? Once this was done a standard PCL retractor was then placed into this position I excised the medial and?lateral meniscus.? The tibial cut was then subsequently removed all excess bony debris was removed.? I then utilized a?lamina senior business development analyst and remove the posterior osteophytes.? At this point time sized the tibia and co nfirmed this was a size 4.? I utilized our blunt probe to establish rotation of tibial implant.? Once this was done I then placed my tibia size 4 trial in appropriate position and then subsequently placed tibial pins to hold this into place placed and trialed up to a size 10 mm poly as well as a size 3 femur which was appropriately impacted in place knee was then subsequently brought into extension. Trials were then assessed,? this was stable with varus valgus stress in extension as well as had symmetrical translation when brought into flexion demonstrating symmetrical gaps. I had excellent balance gaps in flexion and extension with varus and valgus stresses.? At this point I was satisfied with these implants these were then verified and opened on the back table size 4 tibia, size 3 femur,? size 10 mm polythickness.? We did confirm appropriate gap balancing and stresses as well as alignment utilizing? Roberto and were satisfied with this plan.? ?At this point time with my trials in place I then towel clip the patella everted this made appropriate measurements subsequently utilizing freehand technique performed by patellar resurfacing this was confirmed to be appropriate resection and subsequently sized to be a 29 mm symmetric.? My drill peg guides were then clamped and appropriate position and appropriate position in the patella for appropriate tracking and parallel with the joint.? Pegs were drilled trial implant was placed and the knee was then subsequently ranged and found to have excellent patellar tracking.? Femur pegs were then drilled.?All checkpoints as well as guidepins and arrays were removed and appropriate counts ma Satisfied with our tibial placement rotation I then utilized the keel punch and prepped the tibia.? At this point time all of our trial implants were removed.? The wound bed? was thoroughly irrigated and dried and prepped for cementation.? Cement was mixed on the back table.? Once cement was ready this was then covered onto the tibia and the tibial baseplate was then impacted and all excess cement was removed.? Next the polyethylene was then impacted into place on the tibial baseplate.? Next cement was placed onto the femur as well as under the femur implants and impacted in to place and all excess cement was extruded and removed.? Knee was taken into full extension? to clear all excess cement was removed.? Warm saline was placed over the joint.? I then towel clip patella and dried for cementation. cemented the patella into place.? This was all clamped and the cement was allowed to cure.? Thorough irrigation performed with pulse?la vage.? I then placed my periarticular injection while the cement was curing.? Once cured the knee was taken through range of motion and had excellent stability and gaps were balanced in flexion and extension.? Tourniquet was then deflated. hemostasis satisfactory with electrocautery.? Vancomycin powder was placed in the wound bed for antibiotic infection prophylaxis. Next I then subsequently closed the capsule with Ethibond suture as well as a running strata fix suture.? Knee was then taken through range of motion 20 times.? Next the skin was then closed in?layered fashion of running stratifix sutures of deep and subcutenous tissue and skin.? ?closed in flexion and Prineo glue was then placed over the incision this allowed to cure.? Incision was covered with Silverlon, with ABDs soft roll and Josh wrap.? Patient was then awakened from anesthesia and taken to PACU in stable condition. Disposition: Patient taken to PACU in stable condition will be admitted to the floor for pain control PT/OT weight-bear as tolerated?left?lower extremity dressing changes as needed, DVT prophylaxis. Pain control. Patient will receive appropriate postoperative antibiotics. patient will be seen today by the internal medicine team for medical management.? Patient will follow up with the office in 2 weeks.? Patient understands agrees with current plan.? All questions answered.
--- NOTE | 2024-10-24 09:27 | PM.PACU ---
PACU note Narrative: Patient is a 64-year-old male who just underwent a left total knee arthroplasty. Pt transferred to PACU in stable condition. Dressing is dry. pt is awake and alert. Distal pulses are palpable toes are warm and well-perfused. Cap refill is normal and under 2 seconds. Unable to assess for this sensation or motor due to residual spinal block pain is controlled. Exam: awake Disposition: admitted
--- NOTE | 2024-10-24 09:32 | XR_ITS ---
WS: [id number] XR knee LT 3V* [id number] REASON FOR EXAM: post L TKA FINDINGS: Total left knee arthroplasty. The components of the arthroplasty are intact and in proper position and alignment. No focal bone abnormality. XR/XR knee LT 3V* [id number] IMPRESSION: Total left knee arthroplasty without abnormality.
--- NOTE | 2024-10-24 10:04 | ANE.PACU2 ---
Inpatient post-anesthesia follow up: Airway intact: Yes Vital signs: Temperature 97.2 F Pulse Rate 72 Respiratory Rate 20 Blood Pressure 120/71 Pulse Oximetry 92 Oxygen Delivery Me thod Room Air Oxygen Flow Rate Fraction of Inspir ed Oxygen Hydration adequate: Yes Nausea and vomiting: No Pain level: 1 Mental status: Baseline
[2024-10-24] MEDS: lactated ringers 1,000 ML 75 ML IV (11:11)
[2024-10-24] MEDS: chlorhexidine gluconate 0.12% Btl 473 mL 30 ML MUCOUS MEM ×3 (14:06→20:00)
[2024-10-24] MEDS: tranexamic acid 1,000 MG/100 ML PREMIX 600 MG IV (16:07)
[2024-10-24] MEDS: mupirocin oint 22 gm 1 APPLIC NASAL (17:15)
[2024-10-24] MEDS: calcium carb-vit d 600mg/400unit 1 Tablet 1 EACH PO (17:16)
[2024-10-24] MEDS: docusate sodium 100 mg Capsule PO (17:16)
[2024-10-24] MEDS: iron polysaccharide complex 150 mg Capsule PO (17:16)
[2024-10-24] MEDS: ketorolac 30 mg/mL INJ 15 MG IVP (21:26)
[2024-10-24 21:47] LABS: Bilirubin Urine Negative (Negative); Blood Urine Negative (Negative); Glucose Urine UA Negative (Normal); Ketones Urine Negative (Negative); Leukocyte Esterase Urine Trace (Negative); Nitrate Urine Negative (Negative); Protein Urine Negative (Negative); Specific Gravity, Urine 1.019 (1.005-1.030); Urine Appearance Clear (CLEAR); Urine Color Yellow (Yellow); Urobilinogen Urine 0.2 mg/dL (Negative)
[2024-10-24 21:52] LABS: Add Urine Microscopic? YES; Bacteria Urine None Seen /hpf; RBC Urine 0-2 /hpf (0-2); Squamous Epithelial Cell Urine 0-5 /hpf (0-5); WBC Urine 0-5 /hpf (0-5)
[2024-10-25] VITALS (8 sets, daily range): BP systolic 123–145; BP diastolic 73–79; PULSE 76–82; RESP 15–18; TEMP 36.4–36.6; O2SAT 95–97
[2024-10-25] MEDS: lactated ringers 1,000 ML 75 ML IV (00:01)
[2024-10-25] MEDS: oxyCODONE 5 mg IR Tab/Cap PO ×4 (01:07→21:18)
[2024-10-25] MEDS: acetaminophen 1,000 MG/100 ML PIGGYBACK 400 MG IV (02:45)
[2024-10-25 05:41] LABS: Basophils % 0.1 %; Hematocrit 40.8 % (37-53); Lymphocytes # 2.2 10^3/uL (0.8-4.8); Lymphocytes % 9.7 %; Mean Corpuscular HGB Conc 34.3 g/dL (30-55); Mean Corpuscular Hemoglobin 30.2 pg (27-33); Mean Corpuscular Volume 88.1 fl (82-101); Mean Platelet Volume 9.4 fL (7.4-10.4); Monocytes % 4.4 %; Neutrophils # 19.38 10^3/uL (1.8-7.7); Neutrophils % 85.2 %; Nucleated Red Blood Cells % 0 %; Platelet Count 196 10^3/cmm (157-399); Red Blood Count 4.63 10^6/uL (3.85-5.65); Red Cell Distribution Width 11.7 % (12.1-15.1); White Blood Count 22.74 10^3/uL (3.29-11.43)
[2024-10-25 06:05] LABS: Anion Gap 18.4 (5-19); Blood Urea Nitrogen 18 mg/dL (8-23); Calcium 9.5 mg/dL (8.5-10.5); Carbon Dioxide 22 mmol/L (22-29); Chloride 103 mmol/L (98-107); Creatinine Clr Calc Pharmacy 91.6094; Glucose 120 mg/dL (65-115); Osmolality Calculated 291 mOsm/kg (285-295); Potassium 4.4 mmol/L (3.5-5.1); Sodium 139 mmol/L (136-145)
[2024-10-25] MEDS: ceFAZolin 2,000 MG in sodium chloride 0.9% (plus) 50 ML 100 MG IV (07:52)
[2024-10-25] MEDS: ketorolac 30 mg/mL INJ 15 MG IVP ×3 (07:59→23:31)
[2024-10-25] MEDS: calcium carb-vit d 600mg/400unit 1 Tablet 1 EACH PO ×2 (09:06→18:53)
[2024-10-25] MEDS: docusate sodium 100 mg Capsule PO ×2 (09:06→18:53)
[2024-10-25] MEDS: multivitamin therapeutic Tablet 1 TAB PO (09:06)
[2024-10-25] MEDS: mupirocin oint 22 gm 1 APPLIC NASAL ×2 (09:07→18:55)
[2024-10-25] MEDS: apixaban 5 mg Tablet 2.5 MG PO ×2 (09:07→18:53)
[2024-10-25] MEDS: chlorhexidine gluconate 0.12% Btl 473 mL 30 ML MUCOUS MEM ×4 (09:07→21:19)
[2024-10-25] MEDS: iron polysaccharide complex 150 mg Capsule PO ×2 (09:07→18:53)
[2024-10-25] MEDS: TRAMadol 50 mg Tablet PO (10:58)
--- NOTE | 2024-10-25 16:21 | P.PN_ITS ---
Subjective 2 Subjective: Patient seen and examined today he is progressing with therapy at this point in time does not have much in the way of help at home talk with his family and patient and would better be suited for rehab facility. Go ahead and's talked with case management setting up for discharge planning for rehab facility. Vitals/I&O/Wt Last Vital Signs Temp 97.9 F 10/25/24 15:44 Pulse 76 10/25/24 15:44 Resp 15 10/25/24 15:44 BP 128/73 10/25/24 15:44 Pulse Ox 96 10/25/24 09:16 O2 Del Method Room Air 10/25/24 15:44 10/25/24 10/25/24 10/25/24 06:59 14:59 22:59 Intake Total 1112.5 / 3312.5 718.75 / 718.75 Output Total 500 / 3025 900 / 900 Balance 612.5 / 287.5 -181.25 / -181.25 Weight last 48 hrs Weight 192 lb Weight 192 lb Physical Exam 2 Narrative: Left knee examination: Dressing on in place, clean dry and intact. No evidence of saturation. Patient has normal postoperative swelling and tenderness to palpation to the knee. Compartments are soft compressible,'s calf soft and nontender. Sensations intact to light touch distally. Distal pulses are palpable. Patient is able to wiggle toes as well as plantarflex and dorsiflex ankle. Urinary Catheter Management: Dangelo: Cath Placed During This Visit: yes, but has since been removed by the nurse Reason for Continuing Indwelling Catheter: Decision to DC Catheter Urinary Catheter Date of Insertion: 10/24/24 Urinary Catheter Time of Insertion: 07:20 Date Urinary Catheter Removed: 10/25/24 Time Urinary Catheter Discontinued: 05:34 Data 10/25/24 05:20 10/25/24 05:20 Xray Ortho: Radiologist's impression: Ordering Provider/Ordering MD: Efraín Palomo Date of Service: 10/24/24 Procedure(s): XR knee LT 3V* 00028 Accession Number(s): [id number] Report Number: [id number] WS: [id number] XR knee LT 3V* [id number] REASON FOR EXAM: post L TKA FINDINGS: Total left knee arthroplasty. The components of the arthroplasty are intact and in proper position and alignment. No focal bone abnormality. XR/XR knee LT 3V* [id number] IMPRESSION: Total left knee arthroplasty without abnormality. A&P Assessment and plan (1) Status post total left knee replacement: Plan POD #1 TKA Weight-bear as tolerated to operative lower extremity Ice as needed for pain and swelling pain control PT/OT Resume Diet Complete postoperative antibiotics Dressing changes as needed AM labs reviewed Postoperative x-rays reviewed Internal medicine consulted for medical management appreciate their assistance?patient will be seen by internal medicine tomorrow DVT prophylaxis (Eliquis) Case management on board for discharge planning patient does not have assistance at home and after speaking with family would benefit be more safe at a rehab facility upon discharge. Orthopedics will continue to follow. PDMP PDMP Reviewed: Not Reviewed Attestations 2 Medical Necessity Statement*: Ongoing care status post left TKA Coding Level of Care Code Acute Code for Chg Fwd Diagnoses Status post total left knee replacement Z96.652 Time Spent (min) 25
[2024-10-26 02:51] VITALS: RESP 15
[2024-10-26] MEDS: oxyCODONE 5 mg IR Tab/Cap PO ×3 (02:51→13:16)
[2024-10-26 04:06] VITALS: BP 145/88; PULSE 81; RESP 16; TEMP 36.6; O2SAT 95
[2024-10-26 04:27] LABS: Basophils # 0.1 10^3/uL (0.0-0.1); Basophils % 0.3 %; Eosinophils % 0.1 %; Hematocrit 40.7 % (37-53); Lymphocytes # 3.4 10^3/uL (0.8-4.8); Lymphocytes % 22.6 %; Mean Corpuscular HGB Conc 34.2 g/dL (30-55); Mean Corpuscular Hemoglobin 30.3 pg (27-33); Mean Corpuscular Volume 88.7 fl (82-101); Mean Platelet Volume 9.7 fL (7.4-10.4); Monocytes # 1.1 10^3/uL (0.2-0.9); Monocytes % 7.1 %; Neutrophils # 10.31 10^3/uL (1.8-7.7); Neutrophils % 69.4 %; Nucleated Red Blood Cells % 0 %; Platelet Count 182 10^3/cmm (157-399); Red Blood Count 4.59 10^6/uL (3.85-5.65); White Blood Count 14.88 10^3/uL (3.29-11.43)
[2024-10-26 04:48] LABS: Anion Gap 15.9 (5-19); Blood Urea Nitrogen 21 mg/dL (8-23); Calcium 9.1 mg/dL (8.5-10.5); Carbon Dioxide 25 mmol/L (22-29); Chloride 102 mmol/L (98-107); Creatinine Clr Calc Pharmacy 91.6094; Glomerular Filtration Rate 113.2 mL/min (90-130); Glucose 99 mg/dL (65-115); Osmolality Calculated 291 mOsm/kg (285-295); Potassium 3.9 mmol/L (3.5-5.1); Sodium 139 mmol/L (136-145)
[2024-10-26] MEDS: ketorolac 30 mg/mL INJ 15 MG IVP ×2 (06:05→13:16)
[2024-10-26 08:04] VITALS: RESP 16
[2024-10-26] MEDS: iron polysaccharide complex 150 mg Capsule PO (08:04)
[2024-10-26] MEDS: amlodipine 5 mg Tablet PO (10:16)
[2024-10-26] MEDS: apixaban 5 mg Tablet 2.5 MG PO (10:17)
[2024-10-26] MEDS: multivitamin therapeutic Tablet 1 TAB PO (10:18)
[2024-10-26] MEDS: calcium carb-vit d 600mg/400unit 1 Tablet 1 EACH PO (10:19)
[2024-10-26] MEDS: docusate sodium 100 mg Capsule PO (10:19)
[2024-10-26] MEDS: tamsulosin 0.4 mg Capsule PO (10:20)
[2024-10-26] MEDS: finasteride 5 mg Tablet PO (10:20)
[2024-10-26] MEDS: mupirocin oint 22 gm 1 APPLIC NASAL (10:21)
[2024-10-26] MEDS: chlorhexidine gluconate 0.12% Btl 473 mL 30 ML MUCOUS MEM ×2 (10:22→13:17)
[2024-10-26 10:24] VITALS: BP 137/92; PULSE 89; TEMP 36.7; O2SAT 97
--- NOTE | 2024-10-26 11:01 | PM.CONSULT ---
Providers/Reason For Consult Consulting Physician/Specialty*: Hospitalist Reason for Consult*: HTN, BPH Attending Physician: Efraín Palomo DO Primary Care Provider: Fredy Holt DO History of Present Illness History of Present Illness Pleasant 64-year-old gentleman with history of BPH, hypertension, degenerative joint disease, underwent left total knee replacement due to the above on 10/24, and an unremarkable procedure with EBL 25 mL, received 1.2 L fluid. He has been still having some pain, but otherwise recovering well. He is using incentive spirometer. He is working with physical therapy. Arrangements have been started for post Hospital rehabilitation. At home he takes amlodipine, finasteride, tamsulosin. He used to take metoprolol as well but this has been discontinued. Review of Systems Const: Denies: fever(s), chills, body aches or malaise ENMT: Denies: throat pain Card: Denies: chest pain, edema, pre-syncope or dyspnea on exertion Resp: Denies: dyspnea, productive cough, change in phlegm color or hemoptysis GI: Denies: abdominal pain, nausea, vomiting, diarrhea, constipation, hematochezia or melena : Denies: flank pain, difficulty urinating, urinary frequency or hematuria Musc: Denies: back pain, joint swelling or joint redness Skin/Breast: Denies: rash or new lesions Neuro: Denies: headache(s) or confusion Medications/Allergies Home Medications ?Medication ?Instructions ?Recorded ?Confirmed ?Last Taken ?Type amlodipine 10 mg tablet 10 mg PO DAILY 10/18/24 10/20/24 10/23/24 History ciprofloxacin HCl 500 mg tablet 500 mg PO Q12H #10 tabs 10/18/24 10/20/24 10/22/24 Rx finasteride 5 mg tablet 5 mg PO DAILY 10/18/24 10/20/24 10/23/24 History tamsulosin 0.4 mg capsule 0.4 mg PO DAILY 10/18/24 10/20/24 10/23/24 History Allergies Allergy/AdvReac Type Severity Reaction Status Date / Time morphine Allergy Intermediate vomit Verified 10/20/24 11:18 Current Medications Generic Name Dose Route Start Last Admin Trade Name Freq PRN Reason Stop Dose Admin Amlodipine Besylate 5 mg 10/26/24 09:00 10/26/24 10:16 Amlodipine 5 Mg Tablet PO 5 mg DAILY [facility] Administration Apixaban 2.5 mg 10/25/24 09:00 10/26/24 10:17 Apixaban 5 Mg Tablet PO 2.5 mg BID [facility] Administration Calcium Carbonate 1 each 10/24/24 18:00 10/26/24 10:19 Calcium Carb-Vit D 600mg/400unit 1 Tablet PO 1 each BID [facility] Administration Chlorhexidine Gluconate 30 ml 10/24/24 13:00 10/26/24 10:22 Chlorhexidine Gluconate 0.12% Btl 473 Ml MUCOUS MEM 30 ml QID [facility] Administration Docusate Sodium 100 mg 10/24/24 18:00 10/26/24 10:19 Docusate Sodium 100 Mg Capsule PO 100 mg BID [facility] Administration Finasteride 5 mg 10/26/24 09:00 10/26/24 10:20 Finasteride 5 Mg Tablet PO 5 mg DAILY [facility] Administration Lactated Ringer's 1,000 mls @ 75 mls/hr 10/24/24 10:35 10/25/24 14:58 Lactated Ringers IV Not Given .[id number] [facility] Ketorolac Tromethamine 15 mg 10/24/24 10:35 10/26/24 06:05 Ketorolac 30 Mg/Ml Inj IVP 15 mg Q6H PRN Administration MODERATE TO SEVERE PAIN Multivitamins Therapeutic 1 tab 10/25/24 09:00 10/26/24 10:18 Multivitamin Therapeutic Tablet PO 1 tab DAILY [facility] Administration Mupirocin 1 applic 10/24/24 18:00 10/26/24 10:21 Mupirocin Oint 22 Gm NASAL 10/29/24 17:59 1 applic BID [facility] Administration Protocol Oxycodone HCl 5 mg 10/24/24 10:35 10/26/24 08:04 Oxycodone 5 Mg Ir Tab/Cap PO 5 mg Q4H PRN Administration MODERATE PAIN Polysaccharide Iron Complex 150 mg 10/24/24 18:00 10/26/24 08:04 Iron Polysaccharide Complex 150 Mg Capsule PO 150 mg BIDWM [facility] Administration Tamsulosin HCl 0.4 mg 10/26/24 09:00 10/26/24 10:20 Tamsulosin 0.4 Mg Capsule PO 0.4 mg DAILY [facility] Administration Tramadol HCl 50 mg 10/24/24 10:35 10/25/24 10:58 Tramadol 50 Mg Tablet PO 50 mg Q4H PRN Administration MILD TO MODERATE PAIN PFSH Acute PFSH: Medical History (Updated 10/26/24 @ 11:08 by Wilmer Babb MD) HTN (hypertension) BPH (benign prostatic hyperplasia) No pertinent past medical history No pertinent family history Social History Smoking and tobacco/nicotine status: never used tobacco/nicotine Alcohol intake: never Substance/Drug Use: never Marital status: 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 [employer] Vitals/I&O/Wt Last Vital Signs Temp 98.0 F 10/26/24 10:24 Pulse 89 10/26/24 10:24 Resp 16 10/26/24 08:04 BP 137/92 10/26/24 10:24 Pulse Ox 97 10/26/24 10:24 O2 Del Method Room Air 10/26/24 10:24 10/25/24 10/26/24 10/26/24 22:59 06:59 14:59 Output Total 575 / 1475 1050 / 2525 Balance -575 / -756.25 -1050 / -1806.25 Physical Exam Const: COMMON NORMALS: patient oriented x3 and alert GENERAL APPEARANCE: cooperative ORIENTATION/CONSCIOUSNESS: Yes awake HENMT: COMMON NORMALS: oropharynx normal Neck/C-Spine: COMMON NORMALS: no JVD Resp: COMMON NORMALS: normal respiratory effort and clear to auscultation bilaterally AUSCULTATION: clear to auscultation bilaterally Cardio: COMMON NORMALS: no JVD, regular rhythm, S1 normal heart sound present, S2 normal heart sound present and No murmurs present (Cardio) RHYTHM: regular rhythm HEART SOUNDS: S1 normal heart sound present and S2 normal heart sound present GI: COMMON NORMALS: Normal to inspection, nondistended, normoactive bowel sounds present, Soft to palpation and non-tender PALPATION: Yes Soft to palpation Extremity: COMMON NORMALS: no joint enlargement and no pedal edema NARRATIVE EXTREMITY EXAM: Left knee postop dressing. Neuro: COMMON NORMALS: patient oriented x3 and moves all extremities SENSORIUM/ORIENTATION: Yes alert Skin: COMMON NORMALS: no rashes or lesions noted GENERAL SKIN EXAM: no rashes or lesions noted Urinary Catheter Management: Dangelo: Cath Placed During This Visit: yes, but has since been removed by the nurse Reason for Continuing Indwelling Catheter: Decision to DC Catheter Urinary Catheter Date of Insertion: 10/24/24 Urinary Catheter Time of Insertion: 07:20 Date Urinary Catheter Removed: 10/25/24 Time Urinary Catheter Discontinued: 05:34 Data 10/26/24 04:02 10/26/24 04:02 A&P Assessment and plan (1) Status post total left knee replacement: Discussed with orthopedic surgeon, reviewed orthopedic note, did reviewed vitals, CBC, BMP. Did have leukocytosis to 22,000, today improved at 15,000, suspected surgery/stress related, otherwise he does not have any additional acute complaints. Has been having some pain in his knee for which pain control measures have been maintained. He is having good oral intake, will discontinue IV fluid. Dangelo catheter has since been removed. Continues on Eliquis for VTE prophylaxis. Continue mobilization with therapy. Arrangements underway for posthospital rehabilitation. Plan HTN: Resume home amlodipine, for now resume at 5 mg daily to start, DC IV fluid. Would resume full dose in case blood pressure showing persistent elevation. BPH: Resume home tamsulosin and finasteride. PDMP PDMP Reviewed: Not Reviewed Consult Attestations Medical Necessity Statement: Continuing hospitalization for postoperative care and postdischarge planning and arrangements after left TKA. and High MDM includes amount and/or complexity of data reviewed/ordered [ previous or external records, resulted lab(s)/test(s), ordered lab(s)/test(s) and other healthcare professional discussion] as documented Diagnoses Status post total left knee replacement Z96.652
--- NOTE | 2024-10-26 12:31 | P.PN_ITS ---
Subjective 2 Subjective: Patient seen and examined today progressing with therapy at this point in time working with case management on discharge placement at rehab facility Vitals/I&O/Wt Last Vital Signs Temp 98.0 F 10/26/24 10:24 Pulse 89 10/26/24 10:24 Resp 16 10/26/24 08:04 BP 137/92 10/26/24 10:24 Pulse Ox 97 10/26/24 10:24 O2 Del Method Room Air 10/26/24 10:24 10/25/24 10/26/24 10/26/24 22:59 06:59 14:59 Output Total 575 / 1475 1050 / 2525 700 / 700 Balance -575 / -756.25 -1050 / -1806.25 -700 / -700 Physical Exam 2 Narrative: Left knee examination: Dressing on in place, clean dry and intact. No evidence of saturation. Patient has normal postoperative swelling and tenderness to palpation to the knee. Compartments are soft compressible,'s calf soft and nontender. Sensations intact to light touch distally. Distal pulses are palpable. Patient is able to wiggle toes as well as plantarflex and dorsiflex ankle. Urinary Catheter Management: Dangelo: Cath Placed During This Visit: yes, but has since been removed by the nurse Reason for Continuing Indwelling Catheter: Decision to DC Catheter Urinary Catheter Date of Insertion: 10/24/24 Urinary Catheter Time of Insertion: 07:20 Date Urinary Catheter Removed: 10/25/24 Time Urinary Catheter Discontinued: 05:34 Data 10/26/24 04:02 10/26/24 04:02 A&P Assessment and plan (1) Status post total left knee replacement: Plan POD #2 TKA Weight-bear as tolerated to operative lower extremity Ice as needed for pain and swelling pain control PT/OT Resume Diet Complete postoperative antibiotics Dressing changes as needed AM labs reviewed Postoperative x-rays reviewed Internal medicine consulted for medical management appreciate their assistance?patient will be seen by internal medicine tomorrow DVT prophylaxis (Eliquis) Case management on board for discharge planning patient does not have assistance at home and after speaking with family would benefit be more safe at a rehab facility upon discharge. Orthopedics will continue to follow. PDMP PDMP Reviewed: Not Reviewed Attestations 2 Medical Necessity Statement*: Ongoing care status post left total knee arthroplasty Coding Level of Care Code Acute Code for Chg Fwd Diagnoses Status post total left knee replacement Z96.652
[2024-10-26 13:16] VITALS: RESP 16; O2SAT 97
[2024-10-26] MEDS: TRAMadol 50 mg Tablet PO (16:21)
--- NOTE | 2024-10-26 16:30 | PM.DCS ---
Discharge Providers Date of Admission: 10/24/24 10:02 Date of Discharge: October 26, 2024 Attending Provider at Admission: Efraín Palomo DO Attending Provider at Discharge: Efraín Palomo DO Consults: HospitalistDr. Babb Primary Care Provider: Fredy Holt DO Diagnoses at Discharge Discharge Diagnosis (1) Status post total left knee replacement: Status: Acute Reason for Visit Reason for Visit: M17.12 Brief History: Status post left TKA Roberto robotic assisted Hospital Course Hospital Course Patient presented to the preoperative holding area with plan for [Left ] total knee arthroplasty after patient has been worked up in the outpatient setting for failed conservative treatment of [left ] knee degenerative joint disease. Once cleared by anesthesia for surgery patient subsequently was taken back to the operative suite underwent anesthesia per anesthesia department and then subsequently underwent a [ left] total knee arthroplasty. Procedure was performed without any complications patient was taken to PACU in stable condition patient recovered well in PACU and then was admitted to the floor postoperatively internal medicine was consulted and on board for medical management and assistance with care. Patient received appropriate PT/OT, postoperative antibiotics, postoperative TXA, pain control, postoperative DVT prophylaxis. Elevation and ice. Patient encouraged for knee range of motion allowed weightbearing as tolerated to the operative lower extremity. Dressing was changed as needed, labs were monitored daily. Patient recovered well postoperatively and worked well and progressed well with therapy. [Regularly patient and family's plan was for rehab facility at discharge due to the morning about him being at home by himself as his does a work as a result we attempted with current concerns for optimization and after peer to peer was unsuccessful at this point time talked about with patient and he is comfortable with just discharging today at this point time progressed well with therapy was cleared by internal medicine orthopedic team. It was determined on postoperative day [2 ] the patient was stable for discharge from an orthopedic standpoint and medicine. Patient was comfortable with discharge and plan was discharged home. Patient received appropriate discharge instructions as well as pain medication and DVT prophylaxis postoperatively. Given appropriate instructions for dressing management. Patient will follow-up with Dr. Palomo/orthopedics in the office in 2 weeks. All questions answered. Understand if there is any issues questions or concerns and contact the office. Physical Exam Narrative: left knee examination: Dressing on in place, clean dry and intact. No evidence of saturation. Patient has normal postoperative swelling and tenderness to palpation to the knee. Compartments are soft compressible,'s calf soft and nontender. Sensations intact to light touch distally. Distal pulses are palpable. Patient is able to wiggle toes as well as plantarflex and dorsiflex ankle. Urinary Catheter Management: Dangelo: Cath Placed During This Visit: yes, but has since been removed by the nurse Reason for Continuing Indwelling Catheter: Decision to DC Catheter Urinary Catheter Date of Insertion: 10/24/24 Urinary Catheter Time of Insertion: 07:20 Date Urinary Catheter Removed: 10/25/24 Time Urinary Catheter Discontinued: 05:34 Discharge Data Studies Completed and Pending Completed Studies During Hospitalization Category Date Time Status XR knee LT 3V* [id number] Routine Exams 10/24/24 09:32 Completed Pending at discharge Category Date Time Status Basic Metabolic Panel AM LABS Lab 10/27/24 04:00 Ordered Complete Blood Count w/Auto AM LABS Lab 10/27/24 04:00 Ordered Radiology Impressions Knee X-Ray 10/24/24 09:32 IMPRESSION: Total left knee arthroplasty without abnormality. Laboratory Results WBC 14.88 10^3/uL (3.29-11.43) H 10/26/24 04:02 RBC 4.59 10^6/uL (3.85-5.65) 10/26/24 04:02 Hgb 13.90 g/dL (11.27-16.99) 10/26/24 04:02 Hct 40.7 % (37-53) 10/26/24 04:02 MCV 88.7 fl (82-101) 10/26/24 04:02 MCH 30.3 pg (27-33) 10/26/24 04:02 MCHC 34.2 g/dL (30-55) 10/26/24 04:02 RDW 12.0 % (12.1-15.1) L 10/26/24 04:02 Plt Count 182 10^3/cmm (157-399) 10/26/24 04:02 MPV 9.7 fL (7.4-10.4) 10/26/24 04:02 Neut % (Auto) 69.4 % 10/26/24 04:02 Lymph % (Auto) 22.6 % 10/26/24 04:02 [place] % (Auto) 7.1 % 10/26/24 04:02 Eos % (Auto) 0.1 % 10/26/24 04:02 Baso % (Auto) 0.3 % 10/26/24 04:02 Neut # (Auto) 10.31 10^3/uL (1.8-7.7) H 10/26/24 04:02 Lymph # (Auto) 3.4 10^3/uL (0.8-4.8) 10/26/24 04:02 [place] # (Auto) 1.1 10^3/uL (0.2-0.9) H 10/26/24 04:02 Eos # (Auto) 0.0 10^3/uL (0.0-0.8) 10/26/24 04:02 Baso # (Auto) 0.1 10^3/uL (0.0-0.1) 10/26/24 04:02 Nucleated RBC % (auto) 0 % 10/26/24 04:02 Nucleated RBCs # 0.0 /100WBC 10/26/24 04:02 Sodium 139 mmol/L (136-145) 10/26/24 04:02 Potassium 3.9 mmol/L (3.5-5.1) 10/26/24 04:02 Chloride 102 mmol/L (98-107) 10/26/24 04:02 Carbon Dioxide 25 mmol/L (22-29) 10/26/24 04:02 Anion Gap 15.9 (5-19) 10/26/24 04:02 BUN 21 mg/dL (8-23) 10/26/24 04:02 Creatinine 0.7 mg/dL (0.7-1.2) 10/26/24 04:02 GFR Calculation 113.2 mL/min (90-130) 10/26/24 04:02 Glucose 99 mg/dL (65-115) 10/26/24 04:02 Calculated Osmolality 291 mOsm/kg (285-295) 10/26/24 04:02 Calcium 9.1 mg/dL (8.5-10.5) 10/26/24 04:02 Urine Color Yellow (Yellow) 10/24/24 21:25 Urine Appearance Clear (CLEAR) 10/24/24 21:25 Urine pH 7.0 (5-7) 10/24/24 21:25 Ur Specific [place] 1.019 (1.005-1.030) 10/24/24: Urine Protein Negative (Negative) 10/24/24: Urine Glucose (UA) Negative (Normal) 10/24/24: Urine Ketones Negative (Negative) 10/24/24: Urine Blood Negative (Negative) 10/24/24: Urine Nitrate Negative (Negative) 10/24/24: Urine Bilirubin Negative (Negative) 10/24/24: Urine Urobilinogen 0.2 mg/dL (Negative) 10/24/24: Ur Leukocyte Esterase Trace (Negative) A 10/24/24: Urine RBC 0-2 /hpf (0-2) 10/24/24: Urine WBC 0-5 /hpf (0-5) 10/24/24: Ur Squamous Epith Cells 0-5 /hpf (0-5) 10/24/24: Amorphous Sediment Not Reportable 10/24/24: Urine Bacteria None seen /hpf (NONE) 10/24/24: Hyaline Casts 0.40 /lpf 10/24/24 21: Blood Type O Positive 10/24/24 06:25 Rho(D) Type Rh positive 10/24/24 06:25 Antibody Screen Negative 10/24/24 06:25 Vitals Last Vital Signs Temp 98.0 F 10/26/24 10:24 Pulse 89 10/26/24 10:24 Resp 16 10/26/24 13:16 BP 137/92 10/26/24 10:24 Pulse Ox 97 10/26/24 13:16 O2 Del Method Room Air 10/26/24 10:24 Discharge Plan Discharge Patient Disposition: Home Health Service Condition: Stable Prescriptions: New Eliquis 2.5 mg tablet 2.5 mg PO BID 14 Days Qty: 28 0RF methocarbamol 500 mg tablet 500 mg PO TID PRN (Reason: muscle spasms/pain) 14 Days Qty: 42 0RF oxycodone 5 mg tablet 5 mg PO Q6H PRN (Reason: pain postop) 7 Days Qty: 28 0RF Continued finasteride 5 mg tablet 5 mg PO DAILY tamsulosin 0.4 mg capsule 0.4 mg PO DAILY amlodipine 10 mg tablet 10 mg PO DAILY Discontinued ciprofloxacin HCl 500 mg tablet 500 mg PO Q12H Qty: 10 0RF Discharge Orders: Discharge Order (Routine); Ordered 10/26/24 Ordered By: Efraín Palomo Other Ambulatory Orders: DME: Walker (Order) Location: None Selected Ordered By: Wilmer Babb Referrals: [facility] Home Care ([facility]) [Outside] Max Palomo PA [Physician Marshmallow Maker] - 11/08/24 1:30 pm Discharge Diet: Regular Discharge Activity: Limit activity as instructed Patient Instructions: Acute Wound Care (DC), Precautions after Total Joint Replacement Surgery (GEN), Joint Replacement Surgery (GEN), Total Knee Replacement (GEN), Opioid Safety, Post Anesthesia Care Activity Restrictions/Additional Instructions: Orthopedic discharge instructions Keep incisions clean dry and intact, leave Silverlon bandage dressings on in place for 7 days after that may rinse incisions with warm soapy water pat dry and redress with a dry dressing. Patient may weight-bear as tolerate to the operative extremity Utilize walker as needed Encourage knee range of motion Ice and elevate as needed for pain and swelling Take pain medication as prescribed Take antinausea medication as needed Take muscle relaxer as needed for muscle spasms and pain Pain medication can cause constipation. take [id number] stool softeners and or MiraLAX. Take prescribed Eliquis twice daily for the next 14 days for blood clot prevention May supplement for pain with Tylenol [id number]-wxc-[id number] as needed(1000 mg every 8 hours-do not exceed more than 3000mg in 24-hour period) No baths or soaks Follow-up in the orthopedic office in 2 weeks Contact the office for any questions or concerns Discharge Attestations Time Spent in Discharge Care*: greater than 30 min Quality Metrics Clinical Quality Measures [ No reported AMI, CVA or VTE this stay] Coding Level of Care Code Acute Code for Chg Fwd Diagnoses Status post total left knee replacement Z96.652 Time Spent (min) 40
[2024-10-26 17:25] VITALS: BP 148/71; PULSE 90; RESP 16; TEMP 36.4; O2SAT 96
== END 2024-10-26 17:55 | disposition home health service (06) ==
LOC: OBGYN 10:03
PROVIDERS: Physician Assistant; Admitting Provider Student in an Organized Health Care Education/Training Program; PCP Electrodiagnostic Medicine; Visit Provider Student in an Organized Health Care Education/Training Program
PROC: 8E0Y0CZ Robotic Assisted Procedure of Lower Extremity, Open Approach (ICD-10-PCS; CPT 27447; principal; 2024-10-24 07:00)
DX: M17.12 Unilateral primary osteoarthritis, left knee (principal); Z79.899 Other long term (current) drug therapy; Z88.5 Allergy status to narcotic agent; I10 Essential (primary) hypertension; N40.0 Benign prostatic hyperplasia without lower urinary tract symptoms; Z87.891 Personal history of nicotine dependence
CPT/HCPCS: 27447; 36415; 51702; 73562; 80048; 81001; 85025; 86850; 86900; 97110; 97116; 97161; 97165; 97535; C1776; G0378; J0131; J0171; J0690; J1100; J1885; J2250; J2405; J2704; J2795; J3010; J7030; J7120

== ENCOUNTER → 2024-11-08 13:18 | Outpatient (BNVA) | payer MEDICARE, MEDICAID, SELFPAY | PROVIDERS: PCP Electrodiagnostic Medicine; Visit Provider Physician Assistant | DX: Z96.652 Presence of left artificial knee joint (principal) | CPT/HCPCS: 73560; 73565; 99024 ==

== ENCOUNTER → 2024-12-20 14:02 | Outpatient (BNVA) | payer MEDICARE, MEDICAID, SELFPAY | PROVIDERS: PCP Electrodiagnostic Medicine; Visit Provider Physician Assistant | DX: Z98.890 Other specified postprocedural states (principal); Z96.652 Presence of left artificial knee joint | CPT/HCPCS: 73560; 73565; 99024 ==

== ENCOUNTER → 2025-01-31 13:05 | Outpatient (BNVA) | payer MEDICARE, MEDICAID, SELFPAY | PROVIDERS: PCP Electrodiagnostic Medicine; Visit Provider Physician Assistant | DX: Z96.652 Presence of left artificial knee joint (principal) | CPT/HCPCS: 73560; 73565; 99213 ==

== ENCOUNTER 2025-02-24 20:28 | Emergency (ER) | payer MEDICARE, MEDICAID, SELFPAY ==
[2025-02-24 20:30] VITALS: BP 140/66; PULSE 108; RESP 18; TEMP 37; O2SAT 92; BMI 33.6
--- NOTE | 2025-02-24 20:48 | ECG_ITS ---
[facility] Date: 2025-02-24 Pat Name: Sg Garza Department: Room: Gender: Male Middle [employer] Director: : 1960 Requested By: Tree Alvarez Order Number: [id number] Nii MD: Doron Amato M.D. Measurements Intervals [place] Rate: 107 P: 62 OR: 128 QRS: 49 QRSD: 82 T: 22 QT: 307 QTc: 410 Interpretive Statements SINUS TACHYCARDIA ABNORMAL RHYTHM ECG Compared to ECG 10/18/2024 08:41:21 Sinus rhythm no longer present Electronically Signed On 02-25-2025 14:33:17 CDT by Doron Amtao M.D. [email or web address]
--- NOTE | 2025-02-24 20:48 | XRR_ITS ---
PROCEDURE INFORMATION: Exam: XR Chest Exam date and time: 02/24/2025 9:02 PM Age: 64 years old Clinical indication: Pain; Chest pressure; C/O RT sided chest tightness with cough; Additional info: Cp TECHNIQUE: Imaging protocol: Radiologic exam of the chest. Views: 1 view. COMPARISON: CR XR chest 2V* [id number] 12/14/2024 10:11 AM FINDINGS: Lungs: Unremarkable. No consolidation. Pleural spaces: Unremarkable. No pleural effusion. No pneumothorax. Heart/Mediastinum: Unremarkable. No cardiomegaly. Bones/joints: Unremarkable. XR/XR chest 1V portable [id number] IMPRESSION: No acute findings.
[2025-02-24 21:08] VITALS: BP 162/90; PULSE 84; RESP 18; O2SAT 94
[2025-02-24 21:08] LABS: Basophils # 0.1 10^3/uL (0.0-0.1); Basophils % 0.3 %; Hematocrit 40.9 % (37-53); Lymphocytes # 3.3 10^3/uL (0.8-4.8); Mean Corpuscular HGB Conc 33.7 g/dL (30-55); Mean Corpuscular Hemoglobin 30.4 pg (27-33); Mean Corpuscular Volume 90.1 fl (82-101); Mean Platelet Volume 9.6 fL (7.4-10.4); Monocytes # 1.5 10^3/uL (0.2-0.9); Monocytes % 7.5 %; Neutrophils # 14.55 10^3/uL (1.8-7.7); Neutrophils % 74.8 %; Nucleated Red Blood Cells % 0 %; Platelet Count 249 10^3/cmm (157-399); Red Blood Count 4.54 10^6/uL (3.85-5.65); Red Cell Distribution Width 12.1 % (12.1-15.1); White Blood Count 19.44 10^3/uL (3.29-11.43)
--- NOTE | 2025-02-24 21:20 | W.ED.CHESTPA ---
HPI - Chest Pain General: Chief Complaint: Chest Pain Stated Complaint: Chest tightness N/V Time Seen by Provider: 02/24/25 21:08 History of Present Illness: 64-year-old male with a history of hypertension and BPH who presents to the emergency room with nausea and vomiting and a cough with right sided pleuritic chest pain for the last 3 to 4 days. He says the cough has become most bothersome at this point. He has still been vomiting as well. Some epigastric abdominal pain he thinks from vomiting. No known fevers. No altered mental status. Mild tachycardia on presentation which improved. Related Data Home Medications ?Medication ?Instructions ?Recorded ?Confirmed amlodipine 10 mg tablet 10 mg PO DAILY 10/18/24 01/31/25 finasteride 5 mg tablet 5 mg PO DAILY 10/18/24 01/31/25 tamsulosin 0.4 mg capsule 0.4 mg PO DAILY 10/18/24 01/31/25 Previous Rx's ?Medication ?Instructions ?Recorded oxycodone 5 mg tablet 5 mg PO Q6H PRN pain postop 7 days 11/22/24 #28 tabs hydrocodone 5 mg-acetaminophen 325 1 tab PO Q6H PRN pain 5 days #20 12/20/24 mg tablet tabs ondansetron 4 mg disintegrating 4 mg PO Q8H PRN nausea and 12/20/24 tablet vomiting 5 days #15 tabs azithromycin 250 mg tablet See Rx Instructions PO .COMPLEX #6 02/24/25 (Zithromax Z-Jose) tabs benzonatate 200 mg capsule 200 mg PO TID PRN cough #30 caps 02/24/25 cefdinir 300 mg capsule 300 mg PO BID 7 days #14 caps 02/24/25 dexamethasone 6 mg tablet 6 mg PO DAILY 5 days #5 tabs 02/24/25 ondansetron 8 mg disintegrating 8 mg PO Q6H #14 tabs 02/24/25 tablet Allergies Allergy/AdvReac Type Severity Reaction Status Date / Time morphine Allergy Intermediate vomit Verified 02/24/25 20:35 Review of Systems Narrative: Constitutional symptoms: Negative except as documented in HPI. Skin symptoms: Negative except as documented in HPI. Eye symptoms: Negative except as documented in HPI. ENMT symptoms: Negative except as documented in HPI. Respiratory symptoms: Negative except as documented in HPI. Cardiovascular symptoms: Negative except as documented in HPI. Gastrointestinal symptoms: Negative except as documented in HPI. Genitourinary symptoms: Negative except as documented in HPI. Musculoskeletal symptoms: Negative except as documented in HPI. Neurologic symptoms: Negative except as documented in HPI. Psychiatric symptoms: Negative except as documented in HPI. Endocrine symptoms: Negative except as documented in HPI. 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 Physical Exam Narrative: EXAM NARRATIVE: General: Alert, no acute distress. Skin: Warm, dry. Head: Normocephalic, atraumatic. Neck: Supple, trachea midline. Eye: Extraocular movements are intact. Ears, nose, mouth and throat: Tacky oral mucosa Cardiovascular: Regular, Normal peripheral perfusion. Respiratory: Lungs are clear to auscultation, respirations are non-labored, breath sounds are equal, Symmetrical chest wall expansion. Gastrointestinal: Soft, Nontender, Non distended Musculoskeletal: Normal ROM, no deformity. Neurological: Alert and oriented, No focal neurological deficit observed. Psychiatric: Cooperative, appropriate mood & affect. Course Vital Signs: Vital signs: Vital Signs Temperature 98.6 F 02/24/25 20:30 Pulse Rate 84 02/24/25 21:08 Respiratory Rate 18 02/24/25 21:08 Blood Pressure 162/90 02/24/25 21:08 Pulse Oximetry 94 02/24/25 21:08 Oxygen Delivery Me thod Room Air 02/24/25 21:08 MDM - Chest Pain Medical Decision Making Medical decision making: Differential diagnosis for this patient with nausea and vomiting including but not limited to and based on the above HPI, review of systems and physical exam: Urinary tract infection. Appendicitis. Cholecystitis. Colitis. small bowel obstruction. crohn's flare. pancreatitis. gastritis. peptic ulcer. cyclic vomiting. Viral illness. Influenza. COVID. Orders placed to evaluate differential diagnosis based on the above differential, HPI and physical exam EKG: Time 2030. Rate 107 sinus tachycardia, No ST-T changes, no ectopy, normal ME & QRS intervals, This was reviewed and interpreted by myself the ER physician at 2035 Lab Review: Laboratory results were reviewed and interpreted by myself the emergency room physician. Patient does have some leukocytosis which appears to be somewhat chronic. No anemia. No renal failure. Lipase is negative. Liver enzymes are normal. Chest x-ray: No acute process. No infiltrate. No pneumothorax. This was reviewed and interpreted by myself the emergency room physician. I also reviewed the radiology report. I reviewed the patient's medical record. Reexamination: Patient remained stable. No increased work of breathing. No altered mental status. No focal motor deficits. Assessment and plan: Gastroenteritis Vomiting Dehydration Possible upper respiratory infection/aspiration. ?Doxycycline, Decadron, Zofran, fluids and Toradol in the emergency room. - Discharged home - Discussed plan with patient. Answered any questions. - Evaluation and treatment of this problem were appropriate in the emergency setting. Lab Data 02/24/25 21:00 02/24/25 21:00 Radiology Impressions Chest X-Ray 02/24/25 20:48 IMPRESSION: No acute findings. Laboratory Results WBC 19.44 10^3/uL (3.29-11.43) H 02/24/25 21:00 RBC 4.54 10^6/uL (3.85-5.65) 02/24/25 21:00 Hgb 13.80 g/dL (11.27-16.99) 02/24/25 21:00 Hct 40.9 % (37-53) 02/24/25 21:00 MCV 90.1 fl (82-101) 02/24/25 21:00 MCH 30.4 pg (27-33) 02/24/25 21:00 MCHC 33.7 g/dL (30-55) 02/24/25 21:00 RDW 12.1 % (12.1-15.1) 02/24/25 21:00 Plt Count 249 10^3/cmm (157-399) 02/24/25 21:00 MPV 9.6 fL (7.4-10.4) 02/24/25 21:00 Neut % (Auto) 74.8 % 02/24/25 21:00 Lymph % (Auto) 17.0 % 02/24/25 21:00 [place] % (Auto) 7.5 % 02/24/25 21:00 Eos % (Auto) 0.0 % 02/24/25 21:00 Baso % (Auto) 0.3 % 02/24/25 21:00 Neut # (Auto) 14.55 10^3/uL (1.8-7.7) H 02/24/25 21:00 Lymph # (Auto) 3.3 10^3/uL (0.8-4.8) 02/24/25 21:00 [place] # (Auto) 1.5 10^3/uL (0.2-0.9) H 02/24/25 21:00 Eos # (Auto) 0.0 10^3/uL (0.0-0.8) 02/24/25 21:00 Baso # (Auto) 0.1 10^3/uL (0.0-0.1) 02/24/25 21:00 Nucleated RBC % (auto) 0 % 02/24/25 21:00 Nucleated RBCs # 0.0 /100WBC 02/24/25 21:00 Sodium 133 mmol/L (136-145) L 02/24/25 21:00 Potassium 4.6 mmol/L (3.5-5.1) 02/24/25 21:00 Chloride 97 mmol/L (98-107) L 02/24/25 21:00 Carbon Dioxide 20 mmol/L (22-29) L 02/24/25 21:00 Anion Gap 20.6 (5-19) H 02/24/25 21:00 BUN 22 mg/dL (8-23) 02/24/25 21:00 Creatinine 1.0 mg/dL (0.7-1.2) 02/24/25 21:00 GFR Calculation 75.0 mL/min (90-130) L 02/24/25 21:00 Glucose 137 mg/dL (65-115) H 02/24/25 21:00 Calculated Osmolality 281 mOsm/kg (285-295) L 02/24/25 21:00 Lactic Acid 1.6 mmol/L (0.5-2.2) 02/24/25 21:05 Calcium 9.5 mg/dL (8.5-10.5) 02/24/25 21:00 Total Bilirubin 0.6 mg/dL (0.15-1.2) 02/24/25 21:00 AST 16 U/L (0-40) 02/24/25 21:00 ALT 22 U/L (0-41) 02/24/25 21:00 Alkaline Phosphatase 83 U/L (40-130) 02/24/25 21:00 C-Reactive Protein 54.2 mg/L (0.0-4.9) H 02/24/25 21:05 Total Protein 7.7 g/dL (6.6-8.7) 02/24/25 21:00 Albumin 4.6 g/dL (3.5-5.2) 02/24/25 21:00 Globulin 3.1 g/dL (1.3-4.6) 02/24/25 21:00 Lipase 18 U/L (13-60) 02/24/25 21:05 All radiology interpretation(s) finalized by discharge Discharge Plan Discharge Patient Disposition: Home Clinical Impression: Gastroenteritis, Dehydration, Acute upper respiratory infection, Pleuritic chest pain Condition: Stable Prescriptions: New benzonatate 200 mg capsule 200 mg PO TID PRN (Reason: cough) Qty: 30 0RF azithromycin [Zithromax Z-Jose] 250 mg tablet See Rx Instructions .ROUTE .COMPLEX Qty: 6 0RF Rx Instructions: For 250 mg dose pack: take 500 mg today (day 1), then 250 mg for 4 days (days 2-5) dexamethasone 6 mg tablet 6 mg PO DAILY 5 Days Qty: 5 0RF ondansetron 8 mg tablet,disintegrating 8 mg PO Q6H Qty: 14 0RF Rx Instructions: Take 1/2-1 tab every 6 hours as needed for nausea and vomiting cefdinir 300 mg capsule 300 mg PO BID 7 Days Qty: 14 0RF No Action finasteride 5 mg tablet 5 mg PO DAILY tamsulosin 0.4 mg capsule 0.4 mg PO DAILY amlodipine 10 mg tablet 10 mg PO DAILY hydrocodone-acetaminophen 5-325 mg tablet 1 tab PO Q6H PRN (Reason: pain) 5 Days Qty: 20 0RF ondansetron 4 mg tablet,disintegrating 4 mg PO Q8H PRN (Reason: nausea and vomiting) 5 Days Qty: 15 0RF oxycodone 5 mg tablet 5 mg PO Q6H PRN (Reason: pain postop) 7 Days Qty: 28 0RF Discharge Orders: Discharge ED (Routine); Ordered 02/24/25 Ordered By: Dora Duque Referrals: Fredy Holt DO [Primary Care Provider, [facility]] Discharge Diet: Advance as tolerated Discharge Activity: Increase activity as tolerated Patient Instructions: Acute Nausea and Vomiting (ED), Opioid Safety, Pain Management Activity Restrictions/Additional Instructions: Thank you for choosing [facility] for your healthcare needs today. You have been screened and evaluated and felt safe for discharge. Health conditions do change or evolve sometimes and as such it is important that you follow up with your Primary Doctor to be re checked, 3-5 days is a general good time frame for follow up. 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
[2025-02-24 21:33] LABS: Alanine Aminotransferase 22 U/L (0-41); Albumin Level 4.6 g/dL (3.5-5.2); Alkaline Phosphatase 83 U/L (40-130); Anion Gap 20.6 (5-19); Aspartate Amino Transferase 16 U/L (0-40); Blood Urea Nitrogen 22 mg/dL (8-23); Calcium 9.5 mg/dL (8.5-10.5); Carbon Dioxide 20 mmol/L (22-29); Chloride 97 mmol/L (98-107); Creatinine Clr Calc Pharmacy 74.0433; Globulin 3.1 g/dL (1.3-4.6); Glucose 137 mg/dL (65-115); Osmolality Calculated 281 mOsm/kg (285-295); Potassium 4.6 mmol/L (3.5-5.1); Sodium 133 mmol/L (136-145); Total Bilirubin 0.6 mg/dL (0.15-1.2); Total Protein 7.7 g/dL (6.6-8.7)
[2025-02-24 21:34] LABS: C Reactive Protein 54.2 mg/L (0.0-4.9); Lactic Sepsis W/Reflex 1.6 mmol/L (0.5-2.2); Lipase 18 U/L (13-60)
[2025-02-24] MEDS: sodium chloride 0.9% 1,000 ML 999 ML IV (22:15)
[2025-02-24] MEDS: ketorolac 30 mg/mL INJ IVP (22:17)
[2025-02-24] MEDS: dexamethasone 10 mg/mL INJ IVP (22:19)
[2025-02-24] MEDS: doxycycline 100 MG in sodium chloride 0.9% (plus) 100 ML IV (22:21)
[2025-02-24] MEDS: ondansetron hcl ODT 4 mg Tab 8 MG PO (22:25)
[2025-02-24] MEDS: benzonatate 100 mg Capsule 200 MG PO (22:26)
[2025-02-24 22:27] VITALS: BP 144/73; PULSE 89; RESP 16; O2SAT 95
--- NOTE | 2025-02-24 22:40 | ECG_ITS ---
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 Measurements Intervals [place] Rate: 87 P: 48 ME: 148 QRS: 21 QRSD: 93 T: 51 QT: 344 QTc: 415 Interpretive Statements SINUS RHYTHM WITH SINUS ARRHYTHMIA Compared to ECG 02/24/2025 20:31:09 Sinus tachycardia no longer present Electronically Signed On 02-25-2025 14:36:33 CDT by Doron Amato M.D. [id number]
[2025-02-24 23:33] LABS: Troponin(5th) Baseline 12 ng/L (0-15)
[2025-02-24 23:41] LABS: Troponin 5 2HR 11.92 ng/L (0-15)
[2025-02-24 23:44] VITALS: BP 136/70; PULSE 84; RESP 16; O2SAT 92
[2025-02-24 23:51] LABS: Troponin 5 2HR Delta 0.08 ABS# (0-10)
== END 2025-02-24 23:45 | disposition home or self-care (01) ==
PROVIDERS: Family Medicine; Emergency Provider Emergency Medicine; PCP Electrodiagnostic Medicine
DX: K52.9 Noninfective gastroenteritis and colitis, unspecified (principal); E86.0 Dehydration; J06.9 Acute upper respiratory infection, unspecified; R07.81 Pleurodynia; I10 Essential (primary) hypertension
CPT/HCPCS: 36415; 71045; 80053; 83605; 83690; 84484; 85025; 86140; 87040; 93005; 96374; 96375; 99285; J1100; J1885; J3490; J7030; J9999; Q0162

== ENCOUNTER → 2025-05-03 13:35 | Outpatient (BNVA) | payer MEDICARE, MEDICAID, SELFPAY | PROVIDERS: PCP Electrodiagnostic Medicine; Visit Provider Student in an Organized Health Care Education/Training Program | DX: Z96.652 Presence of left artificial knee joint (principal); Z01.89 Encounter for other specified special examinations | CPT/HCPCS: 73560; 73565; 99213 ==

== ENCOUNTER 2025-05-17 13:34 | Outpatient (CLI) | payer MEDICARE, MEDICAID, SELFPAY ==
--- NOTE | 2025-05-17 13:45 | CT_ITS ---
WS: [id number] CT chest ION (PULM ONLY) [id number] HISTORY: Robotic bronch TECHNIQUE: Axial imaging performed through the thorax. CONTRAST: None DLP: 401.07 mGy COMPARISON: 06/29/2024 High resolution 0.5 mm imaging performed through the thorax. Imaging provided prior to bronchoscopy. Mild groundglass attenuation noted in the RIGHT upper lobe. Reidentified is an irregular nodule measuring 11 x 11 mm in the RIGHT upper lobe with small surrounding satellite nodules and bronchial wall thickening. Slight increase in size since 06/29/2024. Reidentified is a 5 mm nodule seen along the LEFT diaphragmatic surface. 3 mm nodule LEFT lower lobe, image 231 of series 3. No change. There are a few additional very tiny micronodules also in the LEFT lower lobe. Atherosclerosis aorta is mild. Normal size pulmonary artery. Coronary artery calcifications. No pericardial or pleural effusions. CT/CT chest ION (PULM ONLY) [id number] IMPRESSION: Imaging provided prior to navigational bronchoscopy.
== END 2025-05-17 13:35 | disposition home or self-care (01) ==
LOC: RAD 13:35
PROVIDERS: PCP Electrodiagnostic Medicine; Visit Provider Internal Medicine
DX: R91.8 Other nonspecific abnormal finding of lung field (principal); I70.0 Atherosclerosis of aorta; I25.10 Atherosclerotic heart disease of native coronary artery without angina pectoris
CPT/HCPCS: 71250

== ENCOUNTER → 2025-05-18 07:53 | Outpatient (BNVA) | payer MEDICARE, MEDICAID, SELFPAY | PROVIDERS: PCP Electrodiagnostic Medicine; Visit Provider Internal Medicine | DX: R91.8 Other nonspecific abnormal finding of lung field (principal); J45.909 Unspecified asthma, uncomplicated; K21.9 Gastro-esophageal reflux disease without esophagitis; R06.02 Shortness of breath; J45.991 Cough variant asthma | CPT/HCPCS: 36415; 80053; 82785; 85025; 85610; 85730; 99205; Q3014 ==

== ENCOUNTER 2025-05-23 08:24 | Day surgery (SDC) | payer MEDICARE, SELFPAY ==
[2025-05-23] VITALS (13 sets, daily range): BP systolic 93–151; BP diastolic 62–102; PULSE 81–92; RESP 17–23; TEMP 36.5–36.8; O2SAT 91–97; BMI 34.4
--- NOTE | 2025-05-23 08:45 | ANES.PREANE2 ---
Pre-Anesthetic Assessment Height/Weight: Height 5 ft 4 in Preop Diagnosis: Lung nodule Operation Date: 05/23/25 10:10 Proposed Procedures p Bronchoscopy [id number](Not Applicable) - Shana Kumar MD s Ion Robotic Assisted Bronchoscopy Robotic Bronchoscopy(Not Applicable) - MD kin Mcelroy Ebus Endobronchial Ultrasound (EBUS)(Not Applicable) - Shana Kumar MD Was Beta Colette taken within 24 hours: N/A Was Clonidine taken within 24 hours: N/A Social No alcohol and No tobacco Exam alert, oriented x 3, clear to auscultation bilaterally and regular rate & rhythm Airway Submandibular: within normal limits Cervical ROM: within normal limits Mallampati: Class II Comments: Comments: Edentulous Anesthetic Plan ASA status: 4 Anesthesia: General Other: No prior issues with anesthesia NPO since yesterday History of hypertension on amlodipine Patient has a right upper lobe pulmonary nodule that has been followed for quite some time but recently had change in morphology. GERD, controlled with nexium Other labs reviewed and unremarkable EKG showing sinus rhythm Labs reviewed from acceptable for procedure METs greater than 4 Plan for GETA Medications/Allergies Home Medications ?Medication ?Instructions ?Recorded ?Confirmed ?Last Taken ?Type finasteride 5 mg tablet 5 mg PO DAILY 10/18/24 05/22/25 05/22/25 History albuterol sulfate 90 mcg/actuation 2 puff inhalation Q6H PRN cough or 05/18/25 05/22/25 05/22/25 Rx aerosol inhaler (Ventolin HFA) wheezing #8.5 grams fluticasone 250 mcg-salmeterol 50 1 inh inhalation BID #60 ea 05/18/25 05/22/25 05/22/25 Rx mcg/dose blistr powdr for inhalation (Advair Diskus) montelukast 10 mg tablet 10 mg PO DAILY 05/18/25 05/22/25 05/22/25 History triamterene 37.5 1 tab PO DAILY 05/18/25 05/22/25 05/22/25 History mg-hydrochlorothiazide 25 mg tablet esomeprazole magnesium 40 mg 40 mg PO DAILY 05/22/25 05/22/25 05/22/25 History capsule,delayed release (Nexium) Allergies Allergy/AdvReac Type Severity Reaction Status Date / Time morphine Allergy Intermediate vomit Verified 05/22/25 09:48 [facility] Anesthesia Medical History (Updated 05/18/25 @ 19:06 by Shana Kumar MD) Constipation Osteoarthritis of right knee Chronic asthmatic bronchitis Essential hypertension Chronic cough Chronic insomnia Hyperlipidemia Anxiety disorder Bilateral hearing loss Obesity Pulmonary nodules BPH (benign prostatic hyperplasia) Social History Smoking and tobacco/nicotine status: never used tobacco/nicotine Alcohol intake: never Substance/Drug Use: never Marital status: 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
--- NOTE | 2025-05-23 09:03 | W.PM.BPON ---
Patient was seen and examined this morning. He is feeling much better with the inhaler. Discussed the benefits and the risks with the bronchoscopy and patient agreed to proceed forward.
--- NOTE | 2025-05-23 09:09 | SC_ITS ---
WS: [id number] Multiple images for navigational bronchoscopy and biopsy of right lung lesion, 05/23/2025 Clinical Data: ION/BRONCH Comparison: Portable chest, 02/24/2025 Findings: Multiple images, C-arm fluoroscopy and CT chest were utilized to biopsy a right upper lobe lesion. SC/C-arm FL for Bronchoscopy Impression: Bronchoscopic biopsy of right upper lobe lesion.
--- NOTE | 2025-05-23 09:40 | W.PM.OPSUD ---
Surgery/Procedure H&P Update DATE OF PROCEDURE: May 23, 2025 DATE H&P PERFORMED: 05/18/25 CHANGES TO PREVIOUS DOCUMENTATION: Patient was seen and examined this morning. He is feeling much better with the inhaler. Discussed the benefits and the risks with the bronchoscopy and patient agreed to proceed forward. PREOP DIAGNOSIS: Lung nodule PLANNED PROCEDURE: Operation Date: 05/23/25 10:10 Proposed Procedures p Bronchoscopy [id number] 34475 [id number] 65847 97697 21686 [id number] 17667(Not Applicable) - Shana Kumar MD s Ion Robotic Assisted Bronchoscopy Robotic Bronchoscopy(Not Applicable) - Shana Kumar MD s Ebus Endobronchial Ultrasound (EBUS)(Not Applicable) - Shana Kumar MD
[2025-05-23] MEDS: lidocaine 2% INJ 20 mL XX (11:36)
--- NOTE | 2025-05-23 11:36 | XR_ITS ---
WS: [id number] Portable AP upright chest, 05/23/2025 Clinical Data: POST ION Comparison: Portable chest, 02/24/2025 Findings: There is a patchy opacity in the right upper lobe adjacent to the minor fissure which may represent minimal hemorrhage post biopsy. The right diaphragm is elevated. Left lung and heart show no change. There are monitor leads on the chest wall. XR/XR chest 1V portable [id number] Impression: Patchy opacity in right upper lobe.
--- NOTE | 2025-05-23 11:40 | P.BOP_ITS ---
Interventional Pulmonary Immediate Brief Operative Note: * Date of Procedure:?May 23, 2025 * Preoperative Diagnosis:?Lung nodules * Postoperative Diagnosis:?[Same as pre-op] * Procedures Performed: Robotic bronchoscopy and mediastinal EBUS staging * Surgeon / Annealing Furnace Tender:?Shana Kumar MD * Anesthesia: * ?General anesthesia * Findings: Normal airway with no evidence of endobronchial lesions but there is some black staining * Estimated Blood Loss (EBL):?[Minimal] * Specimens: * BAL fluid from the anterior segment and apical segments (separate) * TBNA from right upper lobe anterior nodule, right upper lobe apical ground glass opacity, station 7 and 11R * Forceps biopsy from right upper lobe apical ground glass opacification * Cryobiopsy from right upper lobe anterior nodule * Right upper lobe apical GGO brushing * Right upper lobe anterior nodule brushings * Complications:?None * Disposition:?Transferred to PACU in stable condition. Shana Kumar MD, FACP Interventional Pulmonogist
--- NOTE | 2025-05-23 11:40 | W.PM.BPON ---
Interventional Pulmonary Immediate Brief Operative Note: Date of Procedure:?May 23, 2025 Preoperative Diagnosis:?Lung nodules Postoperative Diagnosis:?[Same as pre-op] Procedures Performed: Robotic bronchoscopy and mediastinal EBUS staging Surgeon / Finishing Frame Runner:?Shana Kumar MD Anesthesia: ?General anesthesia Findings: Normal airway with no evidence of endobronchial lesions but there is some black staining Estimated Blood Loss (EBL):?[Minimal] Specimens: BAL fluid from the anterior segment and apical segments (separate) TBNA from right upper lobe anterior nodule, right upper lobe apical ground glass opacity, station 7 and 11R Forceps biopsy from right upper lobe apical ground glass opacification Cryobiopsy from right upper lobe anterior nodule Right upper lobe apical GGO brushing Right upper lobe anterior nodule brushings Complications:?None Disposition:?Transferred to PACU in stable condition. Shana Kumar MD, FACP Interventional Pulmonogist
--- NOTE | 2025-05-23 11:57 | PM.OP ---
Operative Report Date of procedure: May 23, 2025 Pre-op diagnosis: Right lung nodules Post-op diagnosis: Same Procedure done: Robotic bronchoscopy with EBUS mediastinal staging Surgeon: Shana Kumar MD Estimated blood loss: Minimal less than 10 cc Complications: None Findings: Robotic bronchoscopy with complete mediastinal staging Attending: Shana Kumar MD, FACP, FASN Indication: Lung nodules Medications: Lidocaine 2% (6 mL) applied to the tracheobronchial tree Anesthesia: General anesthesia per anesthesia team Procedure: Pre-Anesthesia Assessment Etters Protocol: Pre-procedure Verification: Prior to the procedure, the patient's identity was confirmed using full name, date of , and medical record number. Identity verification included a review of all relevant medical records, history, physical examination, medications, allergies, and previous anesthesia tolerance. Risks, benefits, sedation options, and associated risks were reviewed with the patient, and informed consent was obtained after addressing all questions. Time-Out: Immediately before the procedure, a time-out was conducted to confirm patient identification, procedure details, consent, image labeling, and the need for prophylactic antibiotics. This was verified by the physician, nurse, anesthesiologist, and care management coordinator. Outcome: The procedure was completed without difficulty, and the patient tolerated it well. Findings: A thorough airway exam was performed after passage of the bronchoscope. The trachea was anatomically normal. The right sided airway was anatomically normal without endobronchial lesions or secretions. The left sided airway was anatomically normal without endobronchial lesions or secretions. The prior bronchoscope was removed from the airway. The Wander (f. [employer]) Robotic Bronchoscopy platform was moved into place. The robotic bronchoscope was inserted into the endotracheal tube with care. The position of the bronchoscope was registered to a pre-existing CT scan using shape-sensing virtual bronchoscopy technology (00247). We navigated towards the lesion in the RUL nodule (anterior segement) using a pre-planned route using virtual bronchoscopy Prior to sampling, confirmation of lesion location was done using: - Radial ultrasound probe with no view (37619), - Fluroscopy with a tool overlying the lesion on at least one visual plane. - Virtual target located directly within the path of intended biopsy direction on shape sensing! - Cone Beam intraoperative CT was performed [address] imaging interpretation was utilized for guidance for needle placement. Imaging interpretation by me shows the persistent lesion as well as a tool within the lesion (03288) - CBCT data from the intraoperative imaging was integrated into the Hexadite navigation software and the virtual lesion was updated. After confirming our location, we proceeded to sampling. Transbronchial needle aspiraiton (TBNA) was performed of the lesion using the ION TBNA 21G needle. A total of 5 passes were formed. (03259) Transbronchial biopsies of the lesion were performed using the captura 1.8 mm forceps and 1.1 cryoprobe). A total of 12 samples were obtained. (88345) Endobronchial brushings performed down the airway towards the lesion. A total of 2 brushings were obtained. (96635) A bronchoalveolar lavage was performed of the lobe containing the target lesion with 80 mL of saline instilled and 40 mL of effluent returned. Additional rinse from the robotic bronchoscope lumen was added to the sample after removal of the scope. (68286) Then, we navigated towards the lesion in the RUL (apical) ground glass opacification using a pre-planned route using virtual bronchoscopy Prior to sampling, confirmation of lesion location was done using: - Radial ultrasound probe with no reproducible image (53027), - Fluroscopy with a tool overlying the lesion on at least one visual plane. - Virtual target located directly within the path of intended biopsy direction on shape sensing! - Cone Beam intraoperative CT was performed [address] imaging interpretation was utilized for guidance for needle placement. Imaging interpretation by me shows the persistent lesion as well as a tool within the lesion (62426) - CBCT data from the intraoperative imaging was integrated into the Hexadite navigation software and the virtual lesion was updated. After confirming our location, we proceeded to sampling. Transbronchial needle aspiraiton (TBNA) was performed of the lesion using the ION TBNA 23G needle. A total of 5 passes were formed. (38278) Transbronchial biopsies of the lesion were performed using the captura 1.8 mm forceps. A total of 5 samples were obtained. (77396) Endobronchial brushings performed down the airway towards the lesion. A total of 3 brushings were obtained. (83201) A bronchoalveolar lavage was performed of the lobe containing the target lesion with 80 mL of saline instilled and 35 mL of effluent returned. Additional rinse from the robotic bronchoscope lumen was added to the sample after removal of the scope. (19491) I used new tools for every single nodule. So everything was changed for every nodule. Robotic scope was removed T scope was reinserted and advanced to the right upper lobe and which to complete both BALs as above. The prior bronchoscope was removed from the airway and the EBUS scope was inserted. A complete curvilinear EBUS procedure was performed of the following lymph nodes: Level 11L station was identified with the EBUS scope which did not meet the criteria of sampling Level 4L station was identified with the EBUS scope which did not meet the criteria of sampling Level 7 station was identified with the EBUS scope at the medial LMSB/RMSB and 4 passes were made using a 22G Olympus TBNA needle. Level 4R station was identified with the EBUS scope which did not meet the criteria of sampling Level 11R station was identified with the EBUS scope at the RBI/R hilum and 3 passes were made using a 22G Olympus TBNA needle. [place] Bleeding Scale Grade 1: Suctioning <1 minute. Bleeding of no clinical consequence to patient or provider. Following completion of all diagnostic and therapeutic procedures, hemostasis was verified. The scope was removed and procedure concluded. In summary, the following procedures were performed: 71749 [place] (Endobronchial Brushing(s), 57795 BAL, (Bronchoalveolar Lavage), 55807 TBBX, (Transbronchial biopsies, first lobe), 21298 TBBX +addl lobe, (Transbronchial biopsies, +addl lobe), 91853 pTBNA, (peripheral transbronchial needle aspiration), 63607 pTBNA +addl lobe, (peripheral transbronchial needle aspiration +1 addl lobe), 22847 cEBUS 1-2 lesions, (Central curvelinear EBUS), 53931 pEBUS (peripheral/radial EBUS), 98018 [place], (Navigation bronchoscopy, Lung7-bites, [employer]), 80752: CT guidance for needle placement C1601 use of disposable bronchoscope Procedure: Station 7 Station 11R Left upper lobe
[2025-05-23] MEDS: phenol oral Spray 177 mL 3 SPRAY MUCOUS MEM (12:45)
--- NOTE | 2025-05-23 14:00 | ANE.PACU2 ---
Inpatient post-anesthesia follow up: Airway intact: Yes Vital signs: Temperature 98.2 F Pulse Rate 85 Respiratory Rate 18 Blood Pressure 123/77 Pulse Oximetry 93 Oxygen Delivery Me thod Room Air Oxygen Flow Rate 2 Fraction of Inspir ed Oxygen Hydration adequate: Yes Nausea and vomiting: No Pain level: 1 Mental status: Baseline
--- NOTE | 2025-05-23 14:30 | SUR.PHASEII ---
13:50 PT WITH RELIEF OF COUGHING. DENIES SHORTNESS OF BREATH. OCCASIONAL COUGH. NO BLOODY SPUTUM NOTED.
== END 2025-05-23 14:00 | disposition home or self-care (01) ==
PROVIDERS: PCP Electrodiagnostic Medicine; Visit Provider Internal Medicine
PROC: 0BJ08ZZ Inspection of Tracheobronchial Tree, Via Natural or Artificial Opening Endoscopic (ICD-10-PCS; CPT 31622; principal; 2025-05-23 09:50)
PROC: 0BJ08ZZ Inspection of Tracheobronchial Tree, Via Natural or Artificial Opening Endoscopic (ICD-10-PCS; CPT 31622; 2025-05-23 09:50)
PROC: BB4BZZZ Ultrasonography of Pleura (ICD-10-PCS; 2025-05-23 09:50)
DX: D86.0 Sarcoidosis of lung (principal); I10 Essential (primary) hypertension; K21.9 Gastro-esophageal reflux disease without esophagitis; E78.5 Hyperlipidemia, unspecified; E66.9 Obesity, unspecified; Z68.34 Body mass index [BMI] 34.0-34.9, adult; F41.9 Anxiety disorder, unspecified
CPT/HCPCS: 31623; 31624; 31628; 31629; 31632; 31633; 31652; 31654; 71045; 76000; 87015; 87070; 87075; 87102; 87116; 87176; 87205; 87206; 87801; 88112; 88173; 88305; J1100; J2250; J2405; J2704; J3010; J3490; J7030; J9999

== ENCOUNTER → 2025-06-01 13:24 | Outpatient (BNVA) | payer MEDICARE, SELFPAY | PROVIDERS: PCP Electrodiagnostic Medicine; Visit Provider Internal Medicine | DX: R91.8 Other nonspecific abnormal finding of lung field (principal); J45.909 Unspecified asthma, uncomplicated; K21.9 Gastro-esophageal reflux disease without esophagitis; L92.9 Granulomatous disorder of the skin and subcutaneous tissue, unspecified; Z98.890 Other specified postprocedural states | CPT/HCPCS: 99213 ==

== ENCOUNTER 2025-06-02 13:42 | Outpatient (CLI) | payer MEDICARE, SELFPAY ==
--- NOTE | 2025-06-02 14:00 | PETR_ITS ---
PROCEDURE INFORMATION: Exam: PET/CT Skull Base to Mid-thigh Exam date and time: 06/02/2025 3:14 PM Age: 65 years old Clinical indication: Abnormal findings; Pulmonary nodules LABS AND CLINICAL REPORTS: Glucose: 99 mg/dl Treatment strategy for malignancy (PET staging): Initial Staging (PI) TECHNIQUE: Imaging protocol: Following at least four-hour fasting and following the injection of radiopharmaceutical, low dose CT images were obtained. Then, PET images were obtained. Attenuation corrected images were constructed using the CT scan. Fused images of PET and CT were reviewed. The standardized uptake values (SUV) reported below are maximum values within a region of interest, expressed in gm/ml. Exam includes orbital meatal line to mid-thigh. SUV normalization method: BodyWeight Radiopharmaceutical: 10.92 mCi F-18 FDG (Fluorodeoxyglucose), IV. Time of imaging post radiopharmaceutical administration: 50 minutes Injection site: RIGHT HAND COMPARISON: [facility] INITIAL [id number] 08/25/2023 9:26 AM FINDINGS: Brain: Visualized brain has normal physiologic uptake. Pharynx: No abnormal uptake. Larynx: No abnormal uptake. Lungs, pleura and trachea: 1.1 cm right upper lobe nodule with SUV max of 1.9. Scattered smaller nodules are not well visualized on this exam and likely below PET resolution. No consolidation. Heart: Normal physiologic uptake. Mediastinal space: No abnormal uptake. Liver: No abnormal uptake. Gallbladder and biliary ducts: No abnormal uptake. Pancreas: No abnormal uptake. Spleen: No abnormal uptake. Adrenal glands: No abnormal uptake. Kidneys and ureters: Normal physiologic uptake. Stomach and bowel: No abnormal uptake. Vasculature: No abnormal uptake. Lymph nodes: No abnormal uptake. No lymphadenopathy in the head, neck, chest, abdomen, pelvis, and extremities. Skeleton: No abnormal uptake in the visualized axial and appendicular skeleton. Soft tissues: No abnormal uptake in the visualized head, neck, chest, abdomen, pelvis, and extremities. METRICS: Mediastinal blood pool: SUV max = 2.7 Liver uptake: SUV max = 3.3 PET/PET skull to thigh SUBS [id number] IMPRESSION: 1.1 cm right upper lobe nodule is mildly avid with uptake less than background. Continued attention on CT follow-up is recommended.
== END 2025-06-02 13:43 | disposition home or self-care (01) ==
LOC: RAD 13:42
PROVIDERS: PCP Electrodiagnostic Medicine; Visit Provider Internal Medicine
DX: R91.8 Other nonspecific abnormal finding of lung field (principal)
CPT/HCPCS: 78815; A9552

== ENCOUNTER 2025-06-06 09:45 | Oncology outpatient (recurring) (ONCR) | payer MEDICARE, SELFPAY ==
[2025-06-06 10:31] VITALS: PULSE 84; RESP 18; O2SAT 97
== END 2025-06-13 23:59 | disposition home or self-care (01) ==
LOC: RT 10:15 → ONCMED 11:15
PROVIDERS: PCP Electrodiagnostic Medicine; Visit Provider Internal Medicine
DX: J45.909 Unspecified asthma, uncomplicated (principal); R91.8 Other nonspecific abnormal finding of lung field
CPT/HCPCS: 94060; 94729; J7613

== ENCOUNTER 2025-06-14 06:00 | Oncology outpatient (recurring) (ONCR) | payer MEDICARE, SELFPAY | END 2025-07-14 23:59 | disposition home or self-care (01) | LOC: ONCMED 06-16 08:51 | PROVIDERS: PCP Electrodiagnostic Medicine; Visit Provider Internal Medicine | DX: R91.8 Other nonspecific abnormal finding of lung field (principal); J45.998 Other asthma; K21.9 Gastro-esophageal reflux disease without esophagitis; L92.9 Granulomatous disorder of the skin and subcutaneous tissue, unspecified | CPT/HCPCS: 99212 ==

== ENCOUNTER → 2025-08-08 10:52 | Outpatient (BNVA) | payer MEDICARE, SELFPAY | PROVIDERS: PCP Electrodiagnostic Medicine; Visit Provider Student in an Organized Health Care Education/Training Program | DX: L92.9 Granulomatous disorder of the skin and subcutaneous tissue, unspecified (principal); R91.8 Other nonspecific abnormal finding of lung field; Z86.15 Personal history of latent tuberculosis infection | CPT/HCPCS: 36415; 82085; 82164; 86036; 86160; 86162; 86225; 86235; 86255; 86376; 86612; 86635; 86698; 87806; 99205 ==